=== PATIENT | female | born 1965 | race Asian ===

== ENCOUNTER 2020-04-07 12:24 | Outpatient (REF) | payer OTHER, SELFPAY | END 2020-04-07 12:25 | disposition home or self-care (01) | LOC: HO.WFDLDS 12:24 | PROVIDERS: Visit Provider Internal Medicine | DX: Z20.828 Contact with and (suspected) exposure to other viral communicable diseases (principal) | CPT/HCPCS: C9803; U0003 ==

== ENCOUNTER 2020-04-27 09:00 | Outpatient (RCR) | payer OTHER, SELFPAY ==
--- NOTE | 2020-03-31 08:24 | MHC.PT.EP ---
[facility] [place] Office [place] Office [place] Office [address] Chelsy Calderon [address] [phone] F: [phone] F: [phone] F: [phone] F: [phone] Physical Therapy Plan of Care Date of Evaluation: 03/30/20 Date of Surgery: Diagnosis: LBP Assessment: 55 YO FEMALE REF TO PT FOR LBP WITH INT RADICULAR SXS INTO LEFT 2-5 TOES. 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 MRI 01/21/2020 REVEALED L5-S1 BROAD BASED DISC BULGE, ASYMMETRIC TO THE LEFT AND MULTI LEVEL STENOSIS ( PLEASE REFER TO ABOVE FORMAL REPORT). OBJECTIVE FINDINGE REVEALED LIMITED TRUNK AND HIP AROM, (+) PELVIC/POSTURAL ASYMM, (+) WEAKNESS IN L > R LE, (+) SOFT TISSUE/FASCIAL RESTRICTION, AND FLUCTUATING L/S PAIN AND LEFT LE RADICULAR SXS. FUNCTIONALLY, Pt IS LIMITED WITH LIFTING ITEMS, BENDING, SQUATTING, PROLONGED STANDING, AND MOVING IN BED- SHE HABITUALLY FLEXES AT HER WAIST. Pt WOULD BENEFIT FROM PT TO ADDRESS PAIN AND SX MGMT, DEV HEP, AND IMPROVE HIP FLEX/ PELVIC SYMM-> PROGR W LARISSA PGM WARRANTED. Pt IS MOTIVATED TO REDUCE HER PAIN AND INCREASE HER ACTIVITY LEVEL. Frequency and Duration: The patient will be seen 2x WK x 5 WKS Short Term Goals: Pt'S LS PAIN DECR BY 50% AND LEFT LE RADIC SXS REDUCED BY 75% IN 2 WEEKS Pt DEMON INDEP SELF CORRECT OF POSTURE AND BODY MECH W SIMUL ADLs IN 2 WEEKS Shelter Goals: Pt RETURN TO PLOF, EVIDENT W IMPROVED OSWESTRY SCORE BY 10 POINTS (17/50 AT EVAL) IN 5 WEEKS Pt INDEP W HEP AND SELF-SX MGMT- DEMON WFL FUNCTIONAL SQUAT IN 5 WEEKS Treatment Plan: Modalities to reduce pain, spasms and effusion. Manual therapy to restore motion and function. Therapeutic exercise to improve strength and flexibility. Neuromuscular re-education for posture and balance. Therapeutic activities to return to functional activities of daily living. Please sign and return to therapist. Thank you for your referral.
--- NOTE | 2020-06-10 14:56 | MHC.PT.DC ---
[facility] [place] Office [place] Office [place] Office [address] Chelsy Calderon [address] [phone] F: [phone] F: [phone] F: [phone] F: [phone] Physical Therapy Discharge Report Diagnosis: LBP Date of Surgery: Date of Evaluation: 03/30/20 Date of Discharge: 06/10/20 Treatments to Date: 8 Cancellations to Date: 1 No Shows to Date: 0 Discharge Status: Improved Function Independent with HEP Patient Elected to Stop Discharge Summary: Pt HAS PROGRESSED WELL IN PT FORM HER LBP- HER LAST ATTENDED TREATMENT WAS 04/27/20- ATTEMPTS WERE MADE TO CONTACT HER . Pt HAD DECREASED SUBJECTIVE/ RADICULAR PAIN, IMPROVED AROM AND FLEXIBILITY, IMPROVED SELF-SX MGMT/ CENTRALIZATION OF SXS, INDEP W HEP, AND WE ADDRESSED AND SIMULATED ADLS TO REDUCE LB STRESS AND INCREASE LEs USAGE. Electronically signed by: Lauren Arreaga,PT Please sign and return to therapist. Thank you for your referral.
== END 2020-06-10 13:24 | disposition other institution (70) ==
LOC: HO.PT 09:00
PROVIDERS: Visit Provider Internal Medicine
DX: M54.5 Low back pain (principal)
CPT/HCPCS: 97012; 97110; 97140; 97161; 97530

== ENCOUNTER 2020-08-06 11:31 | Outpatient (REF) | payer OTHER, SELFPAY ==
[2020-08-06 13:41] LABS: Alanine Aminotransferase 23 U/L (0-31); Albumin Level 4.3 g/dL (3.5-5.0); Alkaline Phosphatase 120 U/L (39-117); Anion Gap 9 (12-20); Aspartate Amino Transferase 18 U/L (5-31); Bilirubin Total 0.6 mg/dL (0.0-1.0); Blood Urea Nitrogen 15 mg/dL (9-16); Carbon Dioxide 28 mmol/L (22-29); Chloride 106 mmol/L (96-108); Cholesterol 246 mg/dL; Estimated Glomerular Filt Rate > 60; Glucose Fasting 93 mg/dL (60-99); HDL Cholesterol 65 mg/dL; Iron 88 mcg/dL (30-160); LDL Cholesterol Calculated 170 mg/dl; Percent Iron Saturation 21 % (15-50); Potassium 4.4 mmol/L (3.3-5.1); Sodium 139 mmol/L (135-145); Total Iron Binding Capacity 423 mcg/dL (228-428); Total Protein 7.4 g/dL (6.5-8.0); Triglycerides 58 mg/dL; Unsaturated Iron Binding 335 ug/dL
== END 2020-08-06 11:32 | disposition home or self-care (01) ==
LOC: HO.LAB 11:31
PROVIDERS: PCP Physician Assistant; Visit Provider Physician Assistant
DX: E78.2 Mixed hyperlipidemia (principal); D50.9 Iron deficiency anemia, unspecified
CPT/HCPCS: 36415; 80053; 80061; 83540; 84443

== ENCOUNTER 2021-02-12 07:52 | Outpatient (REF) | payer OTHER, SELFPAY | END 2021-02-12 07:53 | disposition home or self-care (01) | LOC: HO.HOSX 07:52 | PROVIDERS: Visit Provider Physician Assistant | DX: Z13.89 Encounter for screening for other disorder (principal) ==

== ENCOUNTER 2021-07-24 10:53 | Outpatient (REF) | payer OTHER, SELFPAY ==
[2021-07-24 11:53] LABS: Hematocrit 34.5 % (37.0-47.0); Mean Corpuscular HGB Conc 31.9 g/dl (31.0-35.0); Mean Corpuscular Hemoglobin 28.8 pg (27.0-33.0); Mean Corpuscular Volume 90.3 fL (80.0-98.0); Mean Platelet Volume 9.6 fL (9.4-12.3); Platelet Count 351 X10*3/uL (160-400); Red Blood Count 3.82 X10*6/uL (4.20-5.50); Red Cell Distribution Width 13.3 % (11.0-16.0)
[2021-07-24 12:01] LABS: Alanine Aminotransferase 23 U/L (0-31); Albumin Level 4.2 g/dL (3.5-5.0); Alkaline Phosphatase 112 U/L (39-117); Anion Gap 12 (12-20); Aspartate Amino Transferase 18 U/L (5-31); Bilirubin Total 0.6 mg/dL (0.0-1.0); Blood Urea Nitrogen 14 mg/dL (9-16); Calcium 9.7 mg/dL (8.4-10.2); Carbon Dioxide 26 mmol/L (22-29); Chloride 106 mmol/L (96-108); Cholesterol 246 mg/dL; Estimated Glomerular Filt Rate > 60; Glucose Fasting 92 mg/dL (60-99); HDL Cholesterol 72 mg/dL; LDL Cholesterol Calculated 159 mg/dl; Potassium 4.7 mmol/L (3.3-5.1); Sodium 139 mmol/L (135-145); Total Protein 7.6 g/dL (6.5-8.0); Triglycerides 75 mg/dL
[2021-07-24 12:23] LABS: TSH reflex Free T4 2.22 uIU/mL (0.32-4.0)
== END 2021-07-24 10:54 | disposition home or self-care (01) ==
LOC: HO.LAB 10:53
PROVIDERS: PCP Physician Assistant; Visit Provider Physician Assistant
DX: E78.2 Mixed hyperlipidemia (principal); I10 Essential (primary) hypertension
CPT/HCPCS: 36415; 80053; 80061; 84443; 85027

== ENCOUNTER → 2021-08-23 09:38 | Outpatient (BNVA) | payer OTHER, SELFPAY | PROVIDERS: PCP Physician Assistant; Visit Provider Anesthesiology | DX: M54.50 Low back pain, unspecified (principal); G89.4 Chronic pain syndrome; M47.816 Spondylosis without myelopathy or radiculopathy, lumbar region; M51.36 Other intervertebral disc degeneration, lumbar region | CPT/HCPCS: 99202 ==

== ENCOUNTER 2022-02-01 09:37 | Outpatient (REF) | payer OTHER, SELFPAY ==
--- NOTE | ~2022-02-01 | MR_ITS ---
EXAMINATION: MR LUMBAR SPINE WITHOUT CONTRAST CLINICAL INFORMATION: Pain radiating to left hip. COMPARISON: MRI dated 01/21/2020. TECHNIQUE: Multiplanar, multisequence imaging was obtained. FINDINGS: VERTEBRAL BODIES AND PARASPINAL STRUCTURES: There are progressed chronic discogenic endplate changes with degenerative Schmorl's nodes at the L5-S1 level and further moderate disc space narrowing with a slight retrosubluxation. Minimal endplate edema also evident at this level. The remainder of the marrow signal is homogeneous. No compression fractures. There is a minimal posterior subluxation which is stable at the L3-L4 level. The paraspinal soft tissues are unremarkable. Imaged bony pelvis is normal. CONUS MEDULLARIS AND CAUDA EQUINE: The distal cord, conus tip, and cauda equina nerve roots are normal. SPINAL LEVELS: L1-L2: Very mild disc bulge and mild endplate spurring developed since the prior study. No focal disc protrusion, central canal stenosis, or foraminal narrowing. L2-L3: No disc pathology. No central canal stenosis or foraminal narrowing. L3-L4: Minimal endplate spurring and mild retrosubluxation and mild facet arthropathy and a slight posterior disc bulge. No central canal stenosis or foraminal encroachment, otherwise stable. L4-L5: No significant disc pathology. [id number] facet arthropathy. No central canal stenosis or foraminal narrowing. L5-S1: Moderate loss of disc height with chronic degenerative endplate changes and a retrosubluxation. Shallow, broad-based posterior disc bulge again evident with moderate to severe facet arthropathy. No central canal stenosis. Mild left foraminal narrowing. Incidental partially conjoined right L5-S1 nerve roots. Small right extraforaminal disc protrusion mildly impresses upon the exiting right L5 nerve root. MR/MR lumbar spine wo con IMPRESSION: Progressed moderate degenerative disc disease at the L5-S1 level. No central canal stenosis. Partially conjoined right L5-S1 nerve roots with a new small right extraforaminal disc protrusion mildly impressing upon the right L5 nerve root. Stable very mild spondylitic changes at the L3-L4 level. Very mild disc bulge and endplate spurring at the L1-L2 level.
== END 2022-02-01 09:38 | disposition home or self-care (01) ==
LOC: HO.MRI 09:37
PROVIDERS: Visit Provider Physician Assistant
DX: M47.816 Spondylosis without myelopathy or radiculopathy, lumbar region (principal)
CPT/HCPCS: 72148

== ENCOUNTER 2022-02-08 15:55 | Outpatient (REF) | payer OTHER, SELFPAY ==
--- NOTE | ~2022-02-08 | XR_ITS ---
EXAMINATION: BILATERAL KNEE X-RAY CLINICAL INFORMATION: Pain COMPARISON: None TECHNIQUE: 3 views of each knee FINDINGS: Left: Bone alignment is normal. No fracture or dislocation is seen. There is arthritis at the patellofemoral joint. The femoral tibial joints are normal. There is no joint effusion. Right: Bone alignment is normal. No fracture or dislocation is seen. There is arthritis at the patellofemoral joint. The femoral tibial joints are normal. There is no joint effusion. XR/XR knee LT 2V IMPRESSION: Arthritis at the bilateral patellofemoral joints.
--- NOTE | ~2022-02-08 | XR_ITS ---
EXAMINATION: BILATERAL KNEE X-RAY CLINICAL INFORMATION: Pain COMPARISON: None TECHNIQUE: 3 views of each knee FINDINGS: Left: Bone alignment is normal. No fracture or dislocation is seen. There is arthritis at the patellofemoral joint. The femoral tibial joints are normal. There is no joint effusion. Right: Bone alignment is normal. No fracture or dislocation is seen. There is arthritis at the patellofemoral joint. The femoral tibial joints are normal. There is no joint effusion. XR/XR knee RT 2V IMPRESSION: Arthritis at the bilateral patellofemoral joints.
--- NOTE | ~2022-02-08 | XR_ITS ---
EXAMINATION: BILATERAL KNEE X-RAY CLINICAL INFORMATION: Pain COMPARISON: None TECHNIQUE: 3 views of each knee FINDINGS: Left: Bone alignment is normal. No fracture or dislocation is seen. There is arthritis at the patellofemoral joint. The femoral tibial joints are normal. There is no joint effusion. Right: Bone alignment is normal. No fracture or dislocation is seen. There is arthritis at the patellofemoral joint. The femoral tibial joints are normal. There is no joint effusion. XR/XR knee standing BI IMPRESSION: Arthritis at the bilateral patellofemoral joints.
--- NOTE | ~2022-02-08 | XR_ITS ---
EXAMINATION: XR FOOT, LEFT CLINICAL INFORMATION: Pain COMPARISON: None TECHNIQUE: AP, lateral, and oblique views of the left foot. FINDINGS: There is a minimally displaced fracture of the proximal phalanx of the fifth toe. No other fracture is seen. Bone alignment is otherwise normal. Joint spaces are normal. There is soft tissue swelling adjacent to the fracture. XR/XR foot LT 2V IMPRESSION: Minimally displaced fracture of the proximal phalanx of the fifth toe. Findings will be communicated by the [place] work flow director [employer].
== END 2022-02-08 15:56 | disposition home or self-care (01) ==
LOC: HO.XRAY 15:55
PROVIDERS: PCP Physician Assistant; Visit Provider Physician Assistant
DX: M25.561 Pain in right knee (principal); M25.562 Pain in left knee; M79.672 Pain in left foot
CPT/HCPCS: 73560; 73565; 73620

== ENCOUNTER 2022-03-14 15:19 | Outpatient (REF) | payer OTHER, SELFPAY ==
--- NOTE | ~2022-03-14 | XR_ITS ---
EXAMINATION: XR CERVICAL SPINE CLINICAL INFORMATION: Cervicalgia COMPARISON: None TECHNIQUE: 3 views of the cervical spine were obtained. FINDINGS: There is straightening of cervical lordosis with narrowing cough C5-C6 and C6-C7 intervertebral disc spaces with marginal spurring. Soft tissues unremarkable. There is no spondylolysis or listhesis. XR/XR cervical spine 3V IMPRESSION: Mild degenerative changes at the level of C5-C6 and C6-C7
--- NOTE | ~2022-03-14 | XR_ITS ---
EXAMINATION: XR LUMBOSACRAL SPINE CLINICAL INFORMATION: Pain in lumbosacral region COMPARISON: 08/14/2019 TECHNIQUE: Three views of the lumbosacral spine. FINDINGS: There are 5 not ribs bearing lumbar vertebral bodies. Spinal alignment is anatomical with straightening of lumbar lordosis. There is no narrowing of the intervertebral disc spaces or spondylolysis or listhesis except of mild narrowing of L5-S1. Sacroiliac joints are unremarkable. There is mild curvature of lumbar spine to the left. XR/XR lumbar spine 2-3V IMPRESSION: Straightening of lumbar lordosis and mild curvature of lumbar spine to the left, stable since previous
== END 2022-03-14 15:20 | disposition home or self-care (01) ==
LOC: HO.XRAY 15:19
PROVIDERS: PCP Physician Assistant; Visit Provider Physician Assistant
DX: M51.37 Other intervertebral disc degeneration, lumbosacral region (principal); G95.9 Disease of spinal cord, unspecified; V89.2XXA Person injured in unspecified motor-vehicle accident, traffic, initial encounter
CPT/HCPCS: 72040; 72100

== ENCOUNTER 2022-09-09 13:10 | Outpatient (REF) | payer OTHER, SELFPAY ==
[2022-09-09 13:57] LABS: Hemoglobin 10.9 g/dl (12.0-16.0); Mean Corpuscular Hemoglobin 29.6 pg (27.0-33.0); Mean Corpuscular Volume 89.7 fL (80.0-98.0); Platelet Count 319 X10*3/uL (160-400); Red Blood Count 3.68 X10*6/uL (4.20-5.50); Red Cell Distribution Width 13.8 % (11.0-16.0); White Blood Count 6.7 X10*3/uL (4.8-10.8)
[2022-09-09 14:37] LABS: Alanine Aminotransferase 12 U/L (0-31); Albumin Level 4.1 g/dL (3.5-5.0); Alkaline Phosphatase 108 U/L (39-117); Anion Gap 11 (12-20); Aspartate Amino Transferase 11 U/L (5-31); Bilirubin Total 0.3 mg/dL (0.0-1.0); Blood Urea Nitrogen 14 mg/dL (9-16); Calcium 9.3 mg/dL (8.4-10.2); Carbon Dioxide 26 mmol/L (22-29); Chloride 109 mmol/L (96-108); Cholesterol 249 mg/dL; Estimated Glomerular Filt Rate > 60; Glucose Fasting 98 mg/dL (60-99); HDL Cholesterol 52 mg/dL; LDL Cholesterol Calculated 184 mg/dl; Potassium 4.9 mmol/L (3.3-5.1); Sodium 141 mmol/L (135-145); Triglycerides 68 mg/dL
[2022-09-09 14:51] LABS: TSH reflex Free T4 2.68 uIU/mL (0.32-4.0)
== END 2022-09-09 13:11 | disposition home or self-care (01) ==
LOC: HO.LAB 13:10
PROVIDERS: PCP Physician Assistant; Visit Provider Physician Assistant
DX: E78.2 Mixed hyperlipidemia (principal)
CPT/HCPCS: 36415; 80053; 80061; 84443; 85027

== ENCOUNTER 2022-10-13 10:57 | Outpatient (REF) | payer OTHER, SELFPAY ==
--- NOTE | ~2022-10-13 | XR_ITS ---
EXAMINATION: Right tibia and fibula and right ankle. CLINICAL INDICATION: Fall. TECHNIQUE: right ankle 3 views and right tibia and fibula 2 views. FINDINGS: RIGHT TIBIA AND FIBULA: There is no visible bony abnormality tibia-fibula. No cortical thickening or periosteal elevation. The soft tissues are normal. The adjacent knee joint and ankle joint is unremarkable. RIGHT ANKLE: There is moderate lateral malleolar soft tissue swelling. No visible fracture or dislocation seen. Ankle mortise and subtalar joints are normal. A small retrocalcaneal enthesophyte is noted. XR/XR tibia fibula RT 2V IMPRESSION: Small retrocalcaneal enthesophyte. Moderate lateral malleolar soft tissue swelling suggestive of ligamentous injury. No fracture seen. Unremarkable right tibia and fibula.
--- NOTE | ~2022-10-13 | XR_ITS ---
EXAMINATION: Right tibia and fibula and right ankle. CLINICAL INDICATION: Fall. TECHNIQUE: right ankle 3 views and right tibia and fibula 2 views. FINDINGS: RIGHT TIBIA AND FIBULA: There is no visible bony abnormality tibia-fibula. No cortical thickening or periosteal elevation. The soft tissues are normal. The adjacent knee joint and ankle joint is unremarkable. RIGHT ANKLE: There is moderate lateral malleolar soft tissue swelling. No visible fracture or dislocation seen. Ankle mortise and subtalar joints are normal. A small retrocalcaneal enthesophyte is noted. XR/XR ankle RT 2V IMPRESSION: Small retrocalcaneal enthesophyte. Moderate lateral malleolar soft tissue swelling suggestive of ligamentous injury. No fracture seen. Unremarkable right tibia and fibula.
== END 2022-10-13 10:58 | disposition home or self-care (01) ==
LOC: HO.HMGCX 10:57
PROVIDERS: PCP Physician Assistant; Visit Provider Internal Medicine
DX: S99.911A Unspecified injury of right ankle, initial encounter (principal); W19.XXXA Unspecified fall, initial encounter
CPT/HCPCS: 73590; 73600

== ENCOUNTER 2023-03-09 10:15 | Outpatient (REF) | payer OTHER, SELFPAY ==
[2023-03-09 11:44] LABS: Hemoglobin 11.8 g/dl (12.0-16.0); Mean Corpuscular HGB Conc 32.8 g/dl (31.0-35.0); Mean Corpuscular Hemoglobin 29.2 pg (27.0-33.0); Mean Corpuscular Volume 89.1 fL (80.0-98.0); Mean Platelet Volume 9.9 fL (9.4-12.3); Platelet Count 370 X10*3/uL (160-400); Red Blood Count 4.04 X10*6/uL (4.20-5.50); Red Cell Distribution Width 13.8 % (11.0-16.0); White Blood Count 6.3 X10*3/uL (4.8-10.8)
[2023-03-09 13:49] LABS: Alanine Aminotransferase 17 U/L (0-31); Albumin Level 4.4 g/dL (3.5-5.0); Alkaline Phosphatase 111 U/L (39-117); Anion Gap 13 (12-20); Aspartate Amino Transferase 16 U/L (5-31); Bilirubin Total 0.4 mg/dL (0.0-1.0); Blood Urea Nitrogen 11 mg/dL (9-16); Calcium 10.1 mg/dL (8.4-10.2); Carbon Dioxide 25 mmol/L (22-29); Chloride 107 mmol/L (96-108); Cholesterol 252 mg/dL (<200); Estimated Glomerular Filt Rate > 60; Glucose Fasting 93 mg/dL (60-99); HDL Cholesterol 63 mg/dL (>40); LDL Cholesterol Calculated 175 mg/dL (<100); Potassium 4.6 mmol/L (3.3-5.1); Sodium 140 mmol/L (135-145); Triglycerides 71 mg/dL (<150)
== END 2023-03-09 10:16 | disposition home or self-care (01) ==
LOC: HO.LAB 10:15
PROVIDERS: PCP Physician Assistant; Visit Provider Physician Assistant
DX: E78.2 Mixed hyperlipidemia (principal)
CPT/HCPCS: 36415; 80053; 80061; 85027

== ENCOUNTER 2023-03-13 08:39 | Outpatient (AMB) | payer OTHER, SELFPAY ==
[2023-03-13 08:41] VITALS: BP 118/70; PULSE 72; O2SAT 99; BMI 25.6
--- NOTE | 2023-03-13 08:41 | MHC.PC.OV ---
Vital Signs 03/13/23 08:41 Height 5 ft 5 in Weight 154 lb BMI 25.6 BP 118/70 Blood Pressure Location Lt brachial Position Sitting Pulse 72 Pulse Source Pulse Oximeter Pulse Oximetry (%) 99 Oxygen Delivery Method Room Air Intake Visit Reasons: f/u HLD/ Lumbar spine disc issue-PHQ9 NEEDED Allergies acetaminophen [Tylenol-Codeine] Adverse Reaction (Unknown, Verified 03/13/23 08:52) dizziness codeine [Tylenol-Codeine] Adverse Reaction (Unknown, Verified 03/13/23 08:52) dizziness Medication List - Last Reconciled 03/13/23 by Edvin Shahid PA-C acetaminophen ER (Pain Relief (acetaminophen)) 650 mg PO Q12H 30 days amoxicillin-pot clavulanate 875-125 mg 1 tab PO BID 7 days cetirizine 10 mg PO DAILY 90 days cyclobenzaprine 5 mg PO TID PRN 10 days fluticasone propionate 50 mcg/actuation (Flonase Allergy Relief) 1 spray intranasal Q12H 30 days ibuprofen 800 mg PO Q8H 30 days olopatadine 0.2% (Pataday Once Daily Relief) 1 drp ophthalmic (eye) DAILY 30 days zolpidem (Ambien) 5 mg PO BEDTIME 30 days Tobacco use date assessed: 09/12/22 Dental Screening Dental Screen Date: 03/13/23 Did you have a dental visit in the last 12 months?: Yes Did you have a dental problem in the last 6 months where you did not have access to dental care?: No Was dental information given to patient?: Patient has dentist HPI f/u HLD/ Lumbar spine disc issue-PHQ9 NEEDED HPI Details Patient is a 58-year-old female here today for follow-up visit..? 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 --concerns> lumbar spine pain and high cholesterol. Lumbar disc disease:? Continues to have intermittent lumbar spine pain..? She reports worsening left lower extremity neuropathic symptoms such a numbness and tingling her left foot.? She has had MRI lumbar spine in 2021 showing Progressed moderate degenerative disc disease at the L5-S1 level. No central canal stenosis. Partially conjoined right L5-S1 nerve roots with a new small right extraforaminal disc protrusion mildly impressing upon the right L5 nerve root. ? Patient interested in pain reduction intervention and interested in seeing new back specialist. She is interested in seeing a sign painter apprentice for a pain intervention. .. Hyperlipidemia:? Continues to elevated cholesterol, most recent cholesterol showing 250s and LDL 175.? Likely a familiar hyper cholesterolemia.? Not interested in starting cholesterol-lowering medication at this time. She has no cardiovascular risks. ?She has been working on being more physically active and reducing high cholesterol foods in her diet. .. Insomnia: She does use open 5 mg on a very limited p.r.n. basis for sleep. Laboratory Tests 09/09/22 09/09/22 03/09/23 13:19 13:19 10:45 RBC 4.04 L Hgb Creatinine 0.75 Cholesterol 249 252 H LDL Cholesterol, C alc 184 03/09/23 03/09/23 10:45 10:45 RBC Hgb 11.8 L Creatinine Cholesterol LDL Cholesterol, C alc 175 H [facility] Medical History Chronic pain syndrome Disc degeneration, lumbar Spondylosis of lumbar region without myelopathy or radiculopathy Low back pain Surgical History History of section History of wisdom tooth extraction History of cholecystectomy Family History Father Diabetes Mother No problems noted. 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 1. Little interest or pleasure in doing things: not at all 2. Feeling down, depressed, or hopeless: not at all 3. Trouble falling or staying asleep, or sleeping too much: not at all 4. Feeling tired or having little energy: not at all 5. Poor appetite or overeating: not at all 6. Feeling bad about yourself - or that you are a failure or have let yourself or your family down: not at all 7. Trouble concentrating on things, such as reading the newspaper or watching television: not at all 8. Moving or speaking so slowly that other people could have noticed. Or the opposite - being so fidgety or restless that you have been moving around a lot more than usual: not at all 9. Thoughts that you would be better off or of hurting yourself in some way: not at all Total score: 0 Depression Screening Interpretation: Negative Depression Screening Done: Yes 80204 - PHQ-9 Billing: Yes Source: Developed by Drs. Yaniv Pacheco, Stephanie Zabala, Dustin Combs and colleagues, with an educational austin from [employer]. Thrive Questionnaire Date Thrive assessed: 05/25/22 AUDIT C Alcohol Use Questionnaire (AUDIT-C) 1. How often do you have a drink containing alcohol?: Never 3. How often do you have six or more drinks on one occasion?: Never Total Score: 0 NEGIN-7 AMB Questionnaire NEGIN-7 Date NEGIN - 7 assessed: 05/25/22 Source: Developed by Drs. Yaniv Pacheco, Stephanie Zabala, Dustin Combs and colleagues, with an educational austin from [employer]. Review of Systems Const Denies headache(s) Eyes Denies loss of vision ENT Denies vertigo, Denies dizziness, Denies headache(s) and Denies sore throat Card Denies chest pain, Denies leg edema and Denies lightheadedness Resp Denies cough, Denies hemoptysis and Denies wheezing GI Denies abdominal pain, Denies melena, Denies constipation, Denies diarrhea and Denies vomiting Denies urinary frequency, Denies dysuria and Denies urinary urgency Musc Denies arthralgias, Denies joint swelling, Denies numbness and Denies tingling Neuro Denies Abnormal speech present, Denies behavioral changes, Denies vertigo, Denies dizziness, Denies headache(s), Denies loss of vision, Denies memory loss, Denies numbness and Denies tingling Psych Denies anxiety, Denies behavioral changes, Denies depression, Denies memory loss and Denies panic attacks Reginald/Lymph Denies easy bleeding and Denies easy bruising Aller/Immun Denies wheezing Physical exam (Primary Care) Vital Signs: Last Vital Signs Pulse 72 03/13/23 08:41 BP 118/70 03/13/23 08:41 Pulse Ox 99 03/13/23 08:41 Oxygen Delivery Method Room Air 03/13/23 08:41 BMI result Body Mass Index 25.6 Tobacco/Smoking Status: Tobacco use Status Tobacco use date assessed 09/12/22 03/13/23 08:45 Patient Tobacco Use Status Never used Tobacco 03/13/23 08:45 e-Cigarette/Vaping Use Never Used 03/13/23 08:45 Depression Screening Interpretation: Negative Thrive Assessment: Date of Thrive Assessment Date Thrive assessed 05/25/22 03/13/23 08:45 Const General: healthy appearing, no acute distress, alert and awake Nutritional Appearance: well nourished Orientation/consciousness: oriented to person, oriented to place and oriented to time HENMT Ears: TM's normal bilaterally General nose exam: Normal nasal mucous membranes and turbinates present Eyes Conjunctivae: conjunctivae normal Sclerae: sclerae normal Pupils: Equal, round and reactive pupils present Neck Neck: Yes no lymphadenopathy and Yes no JVD Thyroid: Thyroid normal Carotids: no bruits Resp Effort & Inspection: normal respiratory effort and not tachypneic Auscultation: no crackles, no rales, no rhonchi and no wheezes Cardio Rate: regular rate Rhythm: regular rhythm Heart sounds: no murmurs and normal S1 and S2 GI Palpation (GI): Soft to palpation, nontender, no hepatomegaly and no splenomegaly Auscultation: normal bowel sounds Skin General skin exam: no rashes or lesions noted and dry skin Neuro General: oriented to person, oriented to place and oriented to time Cranial nerves: Yes Equal, round and reactive pupils present Speech: No Abnormal speech present Gait exam (Neuro): Normal gait present Motor exam (neuro): no tremor noted Extrem Right upper extremity: full ROM Left upper extremity: full ROM Right lower extremity: full ROM; no edema Left lower extremity: full ROM; no edema Psych Mental Status: mental status grossly normal Speech and movement: Normal speech and movement present Affect: normal affect Attitude: cooperative Thought process: Normal thought process present Assessment and Plan Assessment & Plan (1) HLD (hyperlipidemia): Code(s): E78.5 - Hyperlipidemia, unspecified Qualifiers: Hyperlipidemia type: mixed hyperlipidemia Qualified Code(s): E78.2 - Mixed hyperlipidemia Plan: Patient's cholesterol still remains elevated. Has been working on lifestyle modifications though has not been effective. We did discuss starting medication though patient is not interested in starting medication for cholesterol this time. Will continue to work extensively on lifestyle modifications on reducing high cholesterol foods in her diet. (2) Degenerative disc disease at L5-S1 level: Code(s): M51.37 - Other intervertebral disc degeneration, lumbosacral region Plan: Patient does have chronic lower back pain, most recent MRI lumbar spine showing disc bulge at level L5-S1. Has done physical therapy though has not helped much for pain. She continues to use Tylenol and cyclobenzaprine with decent relief. She is not interested in any surgeries onher lumbar spine at this time. She will reach back out to Pain Management to perhaps discuss cortisone injection (3) Insomnia: Code(s): G47.00 - Insomnia, unspecified Qualifiers: Insomnia type: unspecified Qualified Code(s): G47.00 - Insomnia, unspecified Plan: Patient uses zolpidem on a p.r.n. basis for her sleeping issue. Orders: Orders Complete Blood Count no Diff Today E78.2 - Mixed hyperlipidemia Lipid Panel Today E78.2 - Mixed hyperlipidemia Comprehensive Sanders. Panel Fast Today E78.2 - Mixed hyperlipidemia Medications: Refilled fluticasone propionate 50 mcg/actuation (Flonase Allergy Relief) administer into each nostril 1 spray intranasal Q12H 30 days 16 grams 1RF J30.1 - Allergic rhinitis due to pollen acetaminophen ER (Pain Relief (acetaminophen)) 650 mg PO Q12H 30 days 60 tabs 3RF M17.10 - Unilateral primary osteoarthritis, unspecified knee ibuprofen 800 mg PO Q8H 30 days 90 tabs 1RF G95.9 - Disease of spinal cord, unspecified zolpidem (Ambien) 5 mg PO BEDTIME 30 days 30 tabs 3RF sleep G47.00 - Insomnia, unspecified Discontinued amoxicillin-pot clavulanate 875-125 mg Discontinued Reason: Doctor's Order 1 tab PO BID 7 days 14 tabs 0RF L03.119 - Cellulitis of unspecified part of limb Coding Level of Care Code Est Pt Level 4 (29518) Diagnoses Mixed hyperlipidemia E78.2 Hyperlipidemia type: mixed hyperlipidemia Degenerative disc disease at L5-S1 level M51.37 Insomnia, unspecified type G47.00 Insomnia type: unspecified
== END 2023-03-13 09:17 | disposition home or self-care (01) ==
PROVIDERS: Visit Provider Physician Assistant
DX: E78.2 Mixed hyperlipidemia (principal); M51.37 Other intervertebral disc degeneration, lumbosacral region; G47.00 Insomnia, unspecified
CPT/HCPCS: 99214

== ENCOUNTER 2023-08-16 09:51 | Outpatient (AMB) | payer OTHER, SELFPAY ==
[2023-08-16 09:54] VITALS: BP 100/66; PULSE 65; O2SAT 99; BMI 25.3
--- NOTE | 2023-08-16 09:54 | A.OFFPC_ITS ---
Vital Signs 08/16/23 09:54 Height 5 ft 5 in Weight 152 lb BMI 25.3 BP 100/66 Blood Pressure Location Lt brachial Position Sitting Pulse 65 Pulse Source Pulse Oximeter Pulse Oximetry (%) 99 Oxygen Delivery Method Room Air Intake Visit Reasons: body ache Intake Note: Pt is here for body aches and lower back pain for the past two weeks. 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 Accompanied by: Self / Same As Patient Allergies acetaminophen [Tylenol-Codeine] Adverse Reaction (Unknown, Verified 08/16/23 1 0:11) dizziness codeine [Tylenol-Codeine] Adverse Reaction (Unknown, Verified 08/16/23 10:11) dizziness Medication List - Last Reconciled 08/16/23 by Edvin Shahid PA-C acetaminophen ER (Pain Relief (acetaminophen)) 650 mg PO Q12H 30 days cetirizine 10 mg PO DAILY 90 days cyclobenzaprine 5 mg PO TID PRN 10 days fluticasone propionate 50 mcg/actuation (Flonase Allergy Relief) 1 spray intranasal Q12H 30 days ibuprofen 800 mg PO Q8H 30 days olopatadine 0.2% (Pataday Once Daily Relief) 1 drp ophthalmic (eye) DAILY 30 days zolpidem (Ambien) 5 mg PO BEDTIME 30 days Tobacco use date assessed: 08/16/23 Dental Screening Dental Screen Date: 08/16/23 Did you have a dental visit in the last 12 months?: Yes Did you have a dental problem in the last 6 months where you did not have access to dental care?: No Was dental information given to patient?: Patient has dentist HPI body ache HPI Details Patient is a 58-year-old female here today for problem visit she has been experiencing lower back pain body aches over the last 2 weeks. She reports her muscle aches have gone away which may have been viral. She reports her lower lumbar spine pain has gotten a bit worse. Does report radicular symptoms with numbness and tingling in left foot. Of note MRI in 2021 does show moderate lumbar disc disease and disc herniation at L5-S1. She has done physical therapy for her chronic lumbar spine pain though has not been effective. She is now interested in seeing a powder coat painter about pain reduction modality. [facility] Medical History Chronic pain syndrome Disc degeneration, lumbar Spondylosis of lumbar region without myelopathy or radiculopathy Low back pain Surgical History History of section History of wisdom tooth extraction History of cholecystectomy Family History Father Diabetes Mother No problems noted. 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 1. Little interest or pleasure in doing things: not at all 2. Feeling down, depressed, or hopeless: not at all 3. Trouble falling or staying asleep, or sleeping too much: not at all 4. Feeling tired or having little energy: not at all 5. Poor appetite or overeating: not at all 6. Feeling bad about yourself - or that you are a failure or have let yourself or your family down: not at all 7. Trouble concentrating on things, such as reading the newspaper or watching television: not at all 8. Moving or speaking so slowly that other people could have noticed. Or the opposite - being so fidgety or restless that you have been moving around a lot more than usual: not at all 9. Thoughts that you would be better off or of hurting yourself in some way: not at all Total score: 0 Depression Screening Interpretation: Negative Depression Screening Done: Yes 28712 - PHQ-9 Billing: Yes Source: Developed by Drs. Yaniv Pacheco, Stephanie Zabala, Dustin Combs and colleagues, with an educational austin from [employer]. Thrive Questionnaire Date Thrive assessed: 08/16/23 I am a: Patient What is your living situation today?: I have a steady place to live Within the past 12 months, did the food you bought not last and you didn't have the money to get more?: Never true Within the past 12 months, did you worry whether your food would run out before you got money to buy more?: Never true Do you have trouble paying for medicines?: No Do you have trouble getting transportation to medical appointments?: No Do you have trouble paying your heating and electricity bill?: No Do you have trouble taking care of your child, family member or friend?: No Do you have trouble with day-to-day activities such as bathing, preparing meals, shopping, managing finances, etc.?: No Are you currently unemployed and looking for a job?: No Are you interested in more education?: No Please select the resources that you would like help with: None Currently or been in a relationship where the following occur: no concerns reported THRIVE Score: 0 AUDIT C Alcohol Use Questionnaire (AUDIT-C) 1. How often do you have a drink containing alcohol?: Never 3. How often do you have six or more drinks on one occasion?: Never Total Score: 0 NEGIN-7 AMB Questionnaire NEGIN-7 Date NEGIN - 7 assessed: 08/16/23 Feeling nervous, anxious, or on edge: 0 = Not at all Not being able to stop or control worryin = Not at all Worrying too much about different things: 0 = Not at all Trouble relaxin = Not at all Being so restless that it is hard to sit still: 0 = Not at all Becoming easily annoyed or irritable: 0 = Not at all Feeling afraid as if something awful might happen: 0 = Not at all Total NEGIN-7 score (0-4 normal; 5-9 mild; 10-14 moderate; 15-21 severe): 0 Source: Developed by Drs. Yaniv Pacheco, Stephanie Zabala, Dustin Combs and colleagues, with an educational austin from [employer]. NEGIN-7 Assessment Billing NEGIN-7 Assessment Tool: NEGIN-7 Assessment 74010 Review of Systems Const Denies headache(s) Eyes Denies loss of vision ENT Denies vertigo, Denies dizziness, Denies headache(s) and Denies sore throat Card Denies chest pain, Denies leg edema and Denies lightheadedness Resp Denies cough, Denies hemoptysis and Denies wheezing GI Denies abdominal pain, Denies melena, Denies constipation, Denies diarrhea and Denies vomiting Denies urinary frequency, Denies dysuria and Denies urinary urgency Musc Reports back pain, Denies numbness and Denies tingling Neuro Denies Abnormal speech present, Denies behavioral changes, Denies vertigo, Denies dizziness, Denies headache(s), Denies loss of vision, Denies memory loss, Denies numbness and Denies tingling Psych Denies anxiety, Denies behavioral changes, Denies depression, Denies memory loss and Denies panic attacks Reginald/Lymph Denies easy bleeding and Denies easy bruising Aller/Immun Denies wheezing Physical exam (Primary Care) Vital Signs: Last Vital Signs Pulse 65 08/16/23 09:54 BP 100/66 08/16/23 09:54 Pulse Ox 99 08/16/23 09:54 Oxygen Delivery Method Room Air 08/16/23 09:54 BMI result Body Mass Index 25.3 Tobacco/Smoking Status: Tobacco use Status Tobacco use date assessed 08/16/23 08/16/23 10:06 Patient Tobacco Use Status Never used Tobacco 08/16/23 09:55 e-Cigarette/Vaping Use Never Used 08/16/23 09:55 PHQ-9: PHQ-9 Score PHQ-9: Total score 0 08/16/23 10:13 Depression Screening Interpretation: Negative Thrive Assessment: Date of Thrive Assessment Date Thrive assessed 08/16/23 08/16/23 10:06 Currently or been in a relationship where the following occur: no concerns reported Const General: healthy appearing, no acute distress, alert and awake Nutritional Appearance: well nourished Orientation/consciousness: oriented to person, oriented to place and oriented to time [facility] Ears: TM's normal bilaterally General nose exam: Normal nasal mucous membranes and turbinates present Eyes Conjunctivae: conjunctivae normal Sclerae: sclerae normal Pupils: Equal, round and reactive pupils present Neck Neck: Yes no lymphadenopathy and Yes no JVD Thyroid: Thyroid normal Carotids: no bruits Resp Effort & Inspection: normal respiratory effort and not tachypneic Auscultation: no crackles, no rales, no rhonchi and no wheezes Cardio Rate: regular rate Rhythm: regular rhythm Heart sounds: no murmurs and normal S1 and S2 GI Palpation (GI): Soft to palpation, nontender, no hepatomegaly and no splenomegaly Auscultation: normal bowel sounds Skin General skin exam: no rashes or lesions noted and dry skin Neuro General: oriented to person, oriented to place and oriented to time Cranial nerves: Yes Equal, round and reactive pupils present Speech: No Abnormal speech present Gait exam (Neuro): Normal gait present Motor exam (neuro): no tremor noted Extrem Right upper extremity: full ROM Left upper extremity: full ROM Right lower extremity: full ROM; no edema Left lower extremity: full ROM; no edema Psych Mental Status: mental status grossly normal Speech and movement: Normal speech and movement present Affect: normal affect Attitude: cooperative Thought process: Normal thought process present Assessment and Plan Assessment & Plan (1) Degenerative disc disease at L5-S1 level: Code(s): M51.37 - Other intervertebral disc degeneration, lumbosacral region Plan: Patient reports a few week history of worsening lower lumbar spine pain. Denies any saddle amnesia or bowel or bladder dysfunction. She does report radicular symptoms of numbness and tingling down left lower extremity. Of note MRI of lumbar spine in 2021 showing L5-S1 disc herniation and moderate lumbar disc disease. She is interested in 1 seeing pain management for pain reduction modality. Due to patient's worsening symptoms will try for new MRI of lumbar spine to evaluate for worsening disc herniation. Will start gabapentin 100 mg b.i.d.. Will continue her NSAID and Tylenol Orders: Orders MR lumbar spine wo con Today M51.37 - Other intervertebral disc degeneration, lumbosacral region Referrals Pain Management Referral M51.37 - Other intervertebral disc degeneration, lumbosacral region Medications: New gabapentin 100 mg PO BID 30 days 60 caps 1RF M51.37 - Other intervertebral disc degeneration, lumbosacral region Refilled acetaminophen ER (Pain Relief (acetaminophen)) 650 mg PO Q12H 30 days 60 tabs 3RF M17.10 - Unilateral primary osteoarthritis, unspecified knee Discontinued cyclobenzaprine Discontinued Reason: Doctor's Order 5 mg PO TID 10 days PRN 30 tabs 3RF muscle spasm M51.26 - Other intervertebral disc displacement, lumbar region Coding Level of Care Code Est Pt Level 4 (56093) Diagnoses Degenerative disc disease at L5-S1 level M51.37 Additional Codes NEGIN-7 Assessment Billing - NEGIN-7 Assessment Tool: NEGIN-7 Assessment 95561 ([id number])
== END 2023-08-16 10:28 | disposition home or self-care (01) ==
PROVIDERS: PCP Physician Assistant; Visit Provider Physician Assistant
DX: M51.37 Other intervertebral disc degeneration, lumbosacral region (principal)
CPT/HCPCS: 99214

== ENCOUNTER 2023-09-05 18:38 | Outpatient (REF) | payer OTHER, SELFPAY ==
--- NOTE | ~2023-09-05 | MR_ITS ---
MR LUMBAR SPINE WITHOUT IV CONTRAST CLINICAL INFORMATION: Intervertebral disc degeneration/lumbosacral region. COMPARISON: Lumbar spine radiographs 03/14/2022 and lumbar spine MRI 02/01/2022. TECHNIQUE: MRI of the lumbar spine was obtained using routine sequences without contrast. FINDINGS: There are 5 nonrib-bearing lumbar-type vertebral bodies. There is slight retrolisthesis of L2 on L3 and L3 on L4, unchanged. Lumbar alignment is otherwise preserved. The vertebral body heights are maintained. Chronic opposing endplate Schmorl's nodes at L5-S1 again noted. Mild disc volume loss and disc desiccation at L1-L2 and L3-L4. Progressive moderate disc volume loss and disc desiccation at L5-S1. There is no bone marrow edema. There are no acute fractures. Conus terminates at the L1 level. L1-L2: Slight annular disc bulge. No central canal stenosis and no foraminal stenosis. Findings unchanged. L2-L3: Slight retrolisthesis. Small annular disc bulge. No central canal stenosis and no foraminal stenosis. Findings unchanged. L3-L4: Slight retrolisthesis. Diffuse annular disc bulge and moderate bilateral facet arthropathy and ligamentum flavum thickening. No central canal stenosis and no foraminal stenosis. Findings unchanged. L4-L5: Diffuse annular disc bulge with a superimposed shallow left paracentral disc protrusion that mildly indents the left ventral thecal sac resulting in mild posterior deflection of the traversing left L5 nerve root. Mild bilateral facet arthropathy. No central canal stenosis and no foraminal stenosis. Findings unchanged. L5-S1: Diffuse annular disc bulge that is in part disc osteophyte and moderate bilateral facet arthropathy and ligamentum flavum thickening. 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 No central canal stenosis. Right lateral disc osteophyte protrusion at this level continues to result in mass effect on the extraforaminal right L5 nerve root. 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 Right lateral disc osteophyte protrusion at this level continues to result in mass effect on the extraforaminal right L5 nerve root. - At L4-L5, a shallow left paracentral disc protrusion continues to result in mild posterior deflection of the traversing left L5 nerve root within the left subarticular zone.
== END 2023-09-05 18:39 | disposition home or self-care (01) ==
LOC: HO.MRI 18:38
PROVIDERS: PCP Physician Assistant; Visit Provider Physician Assistant
DX: M51.37 Other intervertebral disc degeneration, lumbosacral region (principal)
CPT/HCPCS: 72148

== ENCOUNTER 2023-09-06 10:32 | Outpatient (REF) | payer OTHER, SELFPAY ==
[2023-09-06 11:05] LABS: Hematocrit 34.3 % (37.0-47.0); Hemoglobin 11.2 g/dl (12.0-16.0); Mean Corpuscular HGB Conc 32.7 g/dl (31.0-35.0); Mean Corpuscular Hemoglobin 28.9 pg (27.0-33.0); Mean Corpuscular Volume 88.6 fL (80.0-98.0); Mean Platelet Volume 9.6 fL (9.4-12.3); Platelet Count 321 X10*3/uL (160-400); Red Blood Count 3.87 X10*6/uL (4.20-5.50); Red Cell Distribution Width 13.2 % (11.0-16.0); White Blood Count 6.8 X10*3/uL (4.8-10.8)
[2023-09-06 11:50] LABS: Alanine Aminotransferase 61 U/L (0-31); Albumin Level 4.1 g/dL (3.5-5.0); Alkaline Phosphatase 141 U/L (39-117); Anion Gap 10 (12-20); Aspartate Amino Transferase 34 U/L (5-31); Bilirubin Total 0.2 mg/dL (0.0-1.0); Blood Urea Nitrogen 15 mg/dL (9-16); Calcium 9.5 mg/dL (8.4-10.2); Carbon Dioxide 28 mmol/L (22-29); Chloride 107 mmol/L (96-108); Cholesterol 226 mg/dL (<200); Estimated Glomerular Filt Rate > 60; Glucose Fasting 99 mg/dL (60-99); HDL Cholesterol 60 mg/dL (>40); LDL Cholesterol Calculated 150 mg/dL (<100); Potassium 4.5 mmol/L (3.3-5.1); Sodium 140 mmol/L (135-145); Total Protein 7.7 g/dL (6.5-8.0); Triglycerides 82 mg/dL (<150)
== END 2023-09-06 10:33 | disposition home or self-care (01) ==
LOC: HO.LAB 10:32
PROVIDERS: PCP Physician Assistant; Visit Provider Physician Assistant
DX: E78.2 Mixed hyperlipidemia (principal)
CPT/HCPCS: 36415; 80053; 80061; 85027

== ENCOUNTER 2023-09-12 08:35 | Outpatient (AMB) | payer OTHER, SELFPAY ==
[2023-09-12 08:40] VITALS: BP 114/68; PULSE 72; O2SAT 98; BMI 25.8
--- NOTE | 2023-09-12 08:40 | MHC.PC.OV ---
Vital Signs 09/12/23 08:40 Height 5 ft 5 in Weight 155 lb BMI 25.8 BP 114/68 Blood Pressure Location Lt brachial Position Sitting Pulse 72 Pulse Source Pulse Oximeter Pulse Oximetry (%) 98 Oxygen Delivery Method Room Air Intake Visit Reasons: f/u HLD/ Lumbar spine issue. Allergies acetaminophen [Tylenol-Codeine] Adverse Reaction (Unknown, Verified 09/12/23 08:48) dizziness codeine [Tylenol-Codeine] Adverse Reaction (Unknown, Verified 09/12/23 08:48) dizziness Medication List - Last Reconciled 09/12/23 by Edvin Shahid PA-C acetaminophen ER (Pain Relief (acetaminophen)) 650 mg PO Q12H 30 days cetirizine 10 mg PO DAILY 90 days fluticasone propionate 50 mcg/actuation (Flonase Allergy Relief) 1 spray intranasal Q12H 30 days gabapentin 100 mg PO BID 30 days ibuprofen 800 mg PO Q8H 30 days olopatadine 0.2% (Pataday Once Daily Relief) 1 drp ophthalmic (eye) DAILY 30 days zolpidem (Ambien) 5 mg PO BEDTIME 30 days Tobacco use date assessed: 08/16/23 Dental Screening Dental Screen Date: 09/12/23 Did you have a dental visit in the last 12 months?: Yes Did you have a dental problem in the last 6 months where you did not have access to dental care?: No Was dental information given to patient?: Patient has dentist HPI f/u HLD/ Lumbar spine issue. HPI Details Patient is a 58-year-old female here today for follow-up visit.. Patient has a past medical history significant for hyperlipidemia, bilateral knee osteoarthritis, degenerative lumbar disc disease. Recently got lumbar spine MRI and awaiting radiology read out. She reports her lower lumbar spine pain has gotten a bit worse. Does report radicular symptoms with numbness and tingling in left foot. Has been using more Tylenol and ibuprofen. Unfortunately liver enzymes slightly elevated.. Of note MRI in 2021 does show moderate lumbar disc disease and disc herniation at L5-S1. She has done physical therapy for her chronic lumbar spine pain though has not been effective. She is now interested in seeing a spray painter about pain reduction modality. .. Hyperlipidemia:? Most recent lipid panel showing improved total cholesterol and LDL. Still has borderline high cholesterol.? Likely a familiar hyper cholesterolemia.? Not interested in starting cholesterol-lowering medication at this time. She has no cardiovascular risks. ?She has been working on being more physically active and reducing high cholesterol foods in her diet. .. Insomnia: She does use open 5 mg on a very limited p.r.n. basis for sleep. Reviewed most recent labs and did show slight elevation in her LFTs. Laboratory Tests 03/09/23 09/06/23 10:45 10:44 RBC 3.87 L Hgb 11.2 L AST 34 H ALT 61 H Cholesterol 252 H 226 H LDL Cholesterol, C alc 175 H 150 H [facility] Medical History Chronic pain syndrome Disc degeneration, lumbar Spondylosis of lumbar region without myelopathy or radiculopathy Low back pain Surgical History History of section History of wisdom tooth extraction History of cholecystectomy Family History Father Diabetes Mother No problems noted. 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 1. Little interest or pleasure in doing things: not at all 2. Feeling down, depressed, or hopeless: not at all 3. Trouble falling or staying asleep, or sleeping too much: not at all 4. Feeling tired or having little energy: not at all 5. Poor appetite or overeating: not at all 6. Feeling bad about yourself - or that you are a failure or have let yourself or your family down: not at all 7. Trouble concentrating on things, such as reading the newspaper or watching television: not at all 8. Moving or speaking so slowly that other people could have noticed. Or the opposite - being so fidgety or restless that you have been moving around a lot more than usual: not at all 9. Thoughts that you would be better off or of hurting yourself in some way: not at all Total score: 0 Depression Screening Interpretation: Negative Depression Screening Done: Yes 74082 - PHQ-9 Billing: Yes Source: Developed by Drs. Yaniv Pacheco, Stephanie Zabala, Dustin Combs and colleagues, with an educational austin from [employer]. Thrive Questionnaire Date Thrive assessed: 09/12/23 I am a: Patient What is your living situation today?: I have a steady place to live Within the past 12 months, did the food you bought not last and you didn't have the money to get more?: Never true Within the past 12 months, did you worry whether your food would run out before you got money to buy more?: Never true Do you have trouble paying for medicines?: No Do you have trouble getting transportation to medical appointments?: No Do you have trouble paying your heating and electricity bill?: No Do you have trouble taking care of your child, family member or friend?: No Do you have trouble with day-to-day activities such as bathing, preparing meals, shopping, managing finances, etc.?: No Are you currently unemployed and looking for a job?: No Are you interested in more education?: No Please select the resources that you would like help with: None Currently or been in a relationship where the following occur: no concerns reported THRIVE Score: 0 AUDIT C Alcohol Use Questionnaire (AUDIT-C) 1. How often do you have a drink containing alcohol?: Never 3. How often do you have six or more drinks on one occasion?: Never Total Score: 0 NEGIN-7 AMB Questionnaire NEGIN-7 Date NEGIN - 7 assessed: 09/12/23 Feeling nervous, anxious, or on edge: 0 = Not at all Not being able to stop or control worryin = Not at all Worrying too much about different things: 0 = Not at all Trouble relaxin = Not at all Being so restless that it is hard to sit still: 0 = Not at all Becoming easily annoyed or irritable: 0 = Not at all Feeling afraid as if something awful might happen: 0 = Not at all Total NEGIN-7 score (0-4 normal; 5-9 mild; 10-14 moderate; 15-21 severe): 0 Source: Developed by Drs. Yaniv Pacheco, Stephanie Zabala, Dustin Combs and colleagues, with an educational austin from [employer]. NGEIN-7 Assessment Billing NEGIN-7 Assessment Tool: NEGIN-7 Assessment 42169 Review of Systems Const Denies headache(s) Eyes Denies loss of vision ENT Denies vertigo, Denies dizziness, Denies headache(s) and Denies sore throat Card Denies chest pain, Denies leg edema and Denies lightheadedness Resp Denies cough, Denies hemoptysis and Denies wheezing GI Denies abdominal pain, Denies melena, Denies constipation, Denies diarrhea and Denies vomiting Denies urinary frequency, Denies dysuria and Denies urinary urgency Musc Denies arthralgias, Denies joint swelling, Denies numbness and Denies tingling Neuro Denies Abnormal speech present, Denies behavioral changes, Denies vertigo, Denies dizziness, Denies headache(s), Denies loss of vision, Denies memory loss, Denies numbness and Denies tingling Psych Denies anxiety, Denies behavioral changes, Denies depression, Denies memory loss and Denies panic attacks Reginald/Lymph Denies easy bleeding and Denies easy bruising Aller/Immun Denies wheezing Physical exam (Primary Care) Vital Signs: Last Vital Signs Pulse 72 09/12/23 08:40 BP 114/68 09/12/23 08:40 Pulse Ox 98 09/12/23 08:40 Oxygen Delivery Method Room Air 09/12/23 08:40 BMI result Body Mass Index 25.8 Tobacco/Smoking Status: Tobacco use Status Tobacco use date assessed 08/16/23 09/12/23 08:45 Patient Tobacco Use Status Never used Tobacco 09/12/23 08:45 e-Cigarette/Vaping Use Never Used 09/12/23 08:45 PHQ-9: PHQ-9 Score PHQ-9: Total score 0 09/12/23 08:52 Depression Screening Interpretation: Negative Thrive Assessment: Date of Thrive Assessment Date Thrive assessed 09/12/23 09/12/23 08:45 Currently or been in a relationship where the following occur: no concerns reported Const General: healthy appearing, no acute distress, alert and awake Nutritional Appearance: well nourished Orientation/consciousness: oriented to person, oriented to place and oriented to time HENMT Ears: TM's normal bilaterally General nose exam: Normal nasal mucous membranes and turbinates present Eyes Conjunctivae: conjunctivae normal Sclerae: sclerae normal Pupils: Equal, round and reactive pupils present Neck Neck: Yes no lymphadenopathy and Yes no JVD Thyroid: Thyroid normal Carotids: no bruits Resp Effort & Inspection: normal respiratory effort and not tachypneic Auscultation: no crackles, no rales, no rhonchi and no wheezes Cardio Rate: regular rate Rhythm: regular rhythm Heart sounds: no murmurs and normal S1 and S2 GI Palpation (GI): Soft to palpation, nontender, no hepatomegaly and no splenomegaly Auscultation: normal bowel sounds Skin General skin exam: no rashes or lesions noted and dry skin Neuro General: oriented to person, oriented to place and oriented to time Cranial nerves: Yes Equal, round and reactive pupils present Speech: No Abnormal speech present Gait exam (Neuro): Normal gait present Motor exam (neuro): no tremor noted Extrem Other: RIGHT KNEE: FULL RANGE OF MOTION, NO LIGAMENTOUS LAXITY. NOTABLE SWELLING COMPARED TO LEFT KNEE IN THE ANTERIOR AND MEDIAL THIGH REGION. Right upper extremity: full ROM Left upper extremity: full ROM Right lower extremity: full ROM; no edema Left lower extremity: full ROM; no edema Psych Mental Status: mental status grossly normal Speech and movement: Normal speech and movement present Affect: normal affect Attitude: cooperative Thought process: Normal thought process present Assessment and Plan Assessment & Plan (1) Degenerative disc disease at L5-S1 level: Code(s): M51.37 - Other intervertebral disc degeneration, lumbosacral region Plan: Patient has a history of L5-S1 disc herniation. She continues to have pain in her lower back that radiates down her left lower extremity. Does have have recent lumbar MRI. She is now willing to try pain reduction modalities. She is requesting to see [facility] pain management for possible pain reduction modality. (2) Right knee meniscal tear: Code(s): S83.206A - Unspecified tear of unspecified meniscus, current injury, right knee, initial encounter Qualifiers: Meniscus of knee: unspecified Meniscus tear of knee type: unspecified type Tear current or old: old Qualified Code(s): M23.206 - Derangement of unspecified meniscus due to old tear or injury, right knee Plan: PATIENT CONTINUES to have right knee pain and swelling. Also does have left knee pain. She has been told in the past she had meniscal tears in both knees. Due to her continued pain and swelling in her right knee will try for MRI of her right knee to evaluate for worsening meniscal tear. (3) GERD (gastroesophageal reflux disease): Code(s): K21.9 - Gastro-esophageal reflux disease without esophagitis Qualifiers: Esophagitis presence: without esophagitis Qualified Code(s): K21.9 - Gastro-esophageal reflux disease without esophagitis Plan: Patient reporting epigastric pain in bloating especially after she eats. She reports low appetite due to the discomfort in her upper abdomen. She feels as though her food is not getting digested quick enough. Likely having gastritis in the setting of a lot more NSAID use due to her pain. Advised on using an antacid to reduce her gastritis symptoms. (4) Constipation: Code(s): K59.00 - Constipation, unspecified Qualifiers: Constipation type: slow transit constipation Qualified Code(s): K59.01 - Slow transit constipation (5) Postprandial bloating: Code(s): R14.0 - Abdominal distension (gaseous) Orders: Orders Liver Panel 2 Weeks R74.8 - Abnormal levels of other serum enzymes Referrals Pain Management Referral M51.37 - Other intervertebral disc degeneration, lumbosacral region Medications: New famotidine (Pepcid) 20 mg PO DAILY 30 days 30 tabs 3RF K21.9 - Gastro-esophageal reflux disease without esophagitis triamcinolone acetonide 0.1% 1 appl topical DAILY 30 days 30 grams 1RF K13.0 - Diseases of lips Refilled zolpidem (Ambien) 5 mg PO BEDTIME 30 days 30 tabs 3RF sleep G47.00 - Insomnia, unspecified Coding Level of Care Code Est Pt Level 4 (14621) Diagnoses Degenerative disc disease at L5-S1 level M51.37 Old tear of meniscus of right knee, unspecified meniscus, unspecified tear type M23.206 Meniscus of knee: unspecified Meniscus tear of knee type: unspecified type Tear current or old: old Gastroesophageal reflux disease without esophagitis K21.9 Esophagitis presence: without esophagitis Slow transit constipation K59.01 Constipation type: slow transit constipation Postprandial bloating R14.0 Additional Codes NEGIN-7 Assessment Billing - NEGIN-7 Assessment Tool: NEGIN-7 Assessment [id number] ([id number])
== END 2023-09-12 09:29 | disposition home or self-care (01) ==
PROVIDERS: PCP Physician Assistant; Visit Provider Physician Assistant
DX: M51.37 Other intervertebral disc degeneration, lumbosacral region (principal); M23.206 Derangement of unspecified meniscus due to old tear or injury, right knee; K21.9 Gastro-esophageal reflux disease without esophagitis; K59.01 Slow transit constipation; R14.0 Abdominal distension (gaseous)
CPT/HCPCS: 99214

== ENCOUNTER 2023-10-05 10:10 | Outpatient (REF) | payer OTHER, SELFPAY ==
[2023-10-05 11:23] LABS: Alanine Aminotransferase 24 U/L (0-31); Albumin Level 4.2 g/dL (3.5-5.0); Alkaline Phosphatase 114 U/L (39-117); Aspartate Amino Transferase 19 U/L (5-31); Bilirubin Direct 0.1 mg/dL (0.0-0.5); Bilirubin Total 0.3 mg/dL (0.0-1.0); Total Protein 7.7 g/dL (6.5-8.0)
== END 2023-10-05 10:11 | disposition home or self-care (01) ==
LOC: HO.LAB 10:10
PROVIDERS: PCP Physician Assistant; Visit Provider Physician Assistant
DX: R74.8 Abnormal levels of other serum enzymes (principal)
CPT/HCPCS: 36415; 80076

== ENCOUNTER 2023-10-26 09:39 | Outpatient (AMB) | payer OTHER, SELFPAY ==
[2023-10-26 09:47] VITALS: BP 122/78; PULSE 69; O2SAT 99; BMI 26.4
--- NOTE | 2023-10-26 09:47 | A.OFFPC_ITS ---
Vital Signs 10/26/23 09:47 Height 5 ft 5 in Weight 158 lb 6 oz BMI 26.4 BP 122/78 Blood Pressure Location Rt brachial Position Sitting Pulse 69 Pulse Source Pulse Oximeter Pulse Oximetry (%) 99 Oxygen Delivery Method Room Air Intake Visit Reasons: discuss low back pain Intake Note: Pt is here for low back pain and FMLA form to be completed. Dog Races Manager Required: No Accompanied by: Self / Same As Patient Allergies acetaminophen [Tylenol-Codeine] Adverse Reaction (Unknown, Verified 10/26/23 10:09) dizziness codeine [Tylenol-Codeine] Adverse Reaction (Unknown, Verified 10/26/23 10:09) dizziness Medication List - Last Reconciled 10/26/23 by Edvin Shahid PA-C acetaminophen ER (Pain Relief (acetaminophen)) 650 mg PO Q12H 30 days cetirizine 10 mg PO DAILY 90 days famotidine (Pepcid) 20 mg PO DAILY 30 days fluticasone propionate 50 mcg/actuation (Flonase Allergy Relief) 1 spray intranasal Q12H 30 days gabapentin 100 mg PO BID 30 days ibuprofen 800 mg PO Q8H 30 days olopatadine 0.2% (Pataday Once Daily Relief) 1 drp ophthalmic (eye) DAILY 30 days triamcinolone acetonide 0.1% 1 appl topical DAILY 30 days zolpidem (Ambien) 5 mg PO BEDTIME 30 days Tobacco use date assessed: 08/16/23 Dental Screening Dental Screen Date: 09/12/23 HPI discuss low back pain HPI Details Patient is a 58-year-old female here today for a follow-up visit. Has been having lower lumbar spine pain. X-ray and MRIs showing disc disease particularly in the L5 S1 region. She continues to have pain to which he uses ibuprofen, Tylenol and gabapentin. She is asking for reasonable accommodations at work only to work 4 hours per shift per day due to the long periods of standing she does. [facility] Medical History Chronic pain syndrome Disc degeneration, lumbar Spondylosis of lumbar region without myelopathy or radiculopathy Low back pain Surgical History History of section History of wisdom tooth extraction History of cholecystectomy Family History Father Diabetes Mother No problems noted. 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 Yaniv Pacheco, Stephanie Zabala, Dustin Combs and colleagues, with an educational austin from [employer]. Review of Systems Const Denies headache(s) Eyes Denies loss of vision ENT Denies vertigo, Denies dizziness, Denies headache(s) and Denies sore throat Card Denies chest pain, Denies leg edema and Denies lightheadedness Resp Denies cough, Denies hemoptysis and Denies wheezing GI Denies abdominal pain, Denies melena, Denies constipation, Denies diarrhea and Denies vomiting Denies urinary frequency, Denies dysuria and Denies urinary urgency Musc Reports back pain, Denies arthralgias, Denies joint swelling, Denies numbness and Denies tingling Neuro Denies Abnormal speech present, Denies behavioral changes, Denies vertigo, Denies dizziness, Denies headache(s), Denies loss of vision, Denies memory loss, Denies numbness and Denies tingling Psych Denies anxiety, Denies behavioral changes, Denies depression, Denies memory loss and Denies panic attacks Reginald/Lymph Denies easy bleeding and Denies easy bruising Aller/Immun Denies wheezing Physical exam (Primary Care) Vital Signs: Last Vital Signs Pulse 69 10/26/23 09:47 BP 122/78 10/26/23 09:47 Pulse Ox 99 10/26/23 09:47 Oxygen Delivery Method Room Air 10/26/23 09:47 BMI result Body Mass Index 26.4 Tobacco/Smoking Status: Tobacco use Status Tobacco use date assessed 08/16/23 10/26/23 09:48 Patient Tobacco Use Status Never used Tobacco 10/26/23 09:48 e-Cigarette/Vaping Use Never Used 10/26/23 09:48 Thrive Assessment: Date of Thrive Assessment Date Thrive assessed 09/12/23 10/26/23 09:48 Const General: healthy appearing, no acute distress, alert and awake Nutritional Appearance: well nourished Orientation/consciousness: oriented to person, oriented to place and oriented to time HENMT Ears: TM's normal bilaterally General nose exam: Normal nasal mucous membranes and turbinates present Eyes Conjunctivae: conjunctivae normal Sclerae: sclerae normal Pupils: Equal, round and reactive pupils present Neck Neck: Yes no lymphadenopathy and Yes no JVD Thyroid: Thyroid normal Carotids: no bruits Resp Effort & Inspection: normal respiratory effort and not tachypneic Auscultation: no crackles, no rales, no rhonchi and no wheezes Cardio Rate: regular rate Rhythm: regular rhythm Heart sounds: no murmurs and normal S1 and S2 GI Palpation (GI): Soft to palpation, nontender, no hepatomegaly and no splenomegaly Auscultation: normal bowel sounds Skin General skin exam: no rashes or lesions noted and dry skin Neuro General: oriented to person, oriented to place and oriented to time Cranial nerves: Yes Equal, round and reactive pupils present Speech: No Abnormal speech present Gait exam (Neuro): Normal gait present Motor exam (neuro): no tremor noted Extrem Right upper extremity: full ROM Left upper extremity: full ROM Right lower extremity: full ROM; no edema Left lower extremity: full ROM; no edema Psych Mental Status: mental status grossly normal Speech and movement: Normal speech and movement present Affect: normal affect Attitude: cooperative Thought process: Normal thought process present Assessment and Plan Assessment & Plan (1) Degenerative disc disease at L5-S1 level: Code(s): M51.37 - Other intervertebral disc degeneration, lumbosacral region Plan: Patient has a history of L5-S1 disc herniation. She continues to have pain in her lower back that radiates down her left lower extremity. Does have have recent lumbar MRI. She is now willing to try pain reduction modalities. She is requesting to see [facility] pain management for possible pain reduction modality. * She brings in reasonable accommodation paperwork from work. Filled out so that she can only work 4 hours per work shift to reduce her long periods of standing that can make lumbar spine disc pain worse. (2) GERD (gastroesophageal reflux disease): Code(s): K21.9 - Gastro-esophageal reflux disease without esophagitis Qualifiers: Esophagitis presence: without esophagitis Qualified Code(s): K21.9 - Gastro-esophageal reflux disease without esophagitis Plan: Patient reporting epigastric pain in bloating especially after she eats. She reports low appetite due to the discomfort in her upper abdomen. She feels as though her food is not getting digested quick enough. Likely having gastritis in the setting of a lot more NSAID use due to her pain. Advised on using an antacid to reduce her gastritis symptoms. Orders: Orders Lipid Panel Today E78.2 - Mixed hyperlipidemia Complete Blood Count no Diff Today E78.2 - Mixed hyperlipidemia Comprehensive [place]. Panel Fast Today E78.2 - Mixed hyperlipidemia Medications: Refilled ibuprofen 800 mg PO Q8H 90 tabs 1RF 30 days G95.9 - Disease of spinal cord, unspecified zolpidem (Ambien) 5 mg PO BEDTIME 30 tabs 3RF sleep 30 days G47.00 - Insomnia, unspecified Coding Level of Care Code Est Pt Level 3 (74242) Diagnoses Degenerative disc disease at L5-S1 level M51.37 Gastroesophageal reflux disease without esophagitis K21.9 Esophagitis presence: without esophagitis
== END 2023-10-26 10:30 | disposition home or self-care (01) ==
PROVIDERS: PCP Physician Assistant; Visit Provider Physician Assistant
DX: M51.37 Other intervertebral disc degeneration, lumbosacral region (principal); K21.9 Gastro-esophageal reflux disease without esophagitis
CPT/HCPCS: 99213

== ENCOUNTER 2024-10-04 10:25 | Outpatient (REF) | payer OTHER, SELFPAY ==
--- NOTE | ~2024-10-04 | XR_ITS ---
EXAMINATION: XR KNEE 3 VIEWS BILATERAL HISTORY: rajesh knee pain COMPARISON: Comparison is made with the prior examination dated 02/08/2022. FINDINGS: Standing AP views of both knees and additional lateral and sunrise patellar views of the bilateral knees are submitted. Osseous mineralization is normal. There is no fracture or dislocation. There is mild spurring involving the medial compartment. Mild degenerative changes of patellofemoral compartments is again noted. The soft tissues are unremarkable. There is no joint effusion. XR/XR Knee Rajesh 3V IMPRESSION: Mild degenerative changes of the bilateral knees as described. Electronically signed by: Yaniv Curry MD 10/04/2024 01:43 PM EDT
--- OUTSIDE RECORDS SUMMARY | 2024-10-04 11:34 | XMS_ITS | Encounter Summary ---
Author Organization [employer] Address [address] [facility] [address] [place] [address] Care Team Providers Care Logging Specialist Name Role Phone Unavailable Primary Care Provider Unavailabl e Encounter Details Date Type Department Care Team (Latest Contact Info) Description 02/22/2019 Abstract [facility] CONVERSIONS Dental, Provider, DDS Social History [...]
--- OUTSIDE RECORDS SUMMARY | 2024-10-04 11:34 | XMS_ITS | Clinical Summary ---
Author Organization [employer] Address [address] [facility] [address] [place] [address] Care Team Providers Care Joy Operator Helper Name Role Phone Unavailable Primary Care Provider [...]
[2024-10-04 12:03] LABS: Hematocrit 34.4 % (37.0-47.0); Hemoglobin 11.5 g/dl (12.0-16.0); Mean Corpuscular HGB Conc 33.4 g/dl (31.0-35.0); Mean Corpuscular Hemoglobin 29.4 pg (27.0-33.0); Mean Platelet Volume 10.1 fL (9.4-12.3); Platelet Count 310 X10*3/uL (160-400); Red Blood Count 3.91 X10*6/uL (4.20-5.50); Red Cell Distribution Width 13.6 % (11.0-16.0); White Blood Count 6.4 X10*3/uL (4.8-10.8)
[2024-10-04 12:17] LABS: Anion Gap 14 (12-20)
[2024-10-04 12:34] LABS: Alanine Aminotransferase 32 U/L (0-31); Albumin Level 4.3 g/dL (3.5-5.0); Alkaline Phosphatase 121 U/L (39-117); Aspartate Amino Transferase 29 U/L (5-31); Bilirubin Total 0.3 mg/dL (0.0-1.0); Blood Urea Nitrogen 14 mg/dL (9-16); Calcium 9.7 mg/dL (8.4-10.2); Carbon Dioxide 23 mmol/L (22-29); Chloride 110 mmol/L (96-108); Cholesterol 254 mg/dL (<200); Estimated Glomerular Filt Rate > 60; Glucose Fasting 91 mg/dL (60-99); HDL Cholesterol 63 mg/dL (>40); LDL Cholesterol Calculated 175 mg/dL (<100); Potassium 3.7 mmol/L (3.3-5.1); Sodium 143 mmol/L (135-145); Total Protein 7.8 g/dL (6.5-8.0); Triglycerides 80 mg/dL (<150)
[2024-10-04 12:43] LABS: HBS Num1 0.27 mIU/mL (0-7.99); ~Hepatitis B Surface Antibody NONREACTIVE (Nonreactive)
[2024-10-08 22:53] LABS: Rubella IgG Antibody 2.69 Index; Rubeola IgG (Measles) >300.00 AU/mL
== END 2024-10-04 10:26 | disposition home or self-care (01) ==
LOC: HO.XRAY 10:25
PROVIDERS: Absent Provider Physician Assistant; PCP Physician Assistant
DX: E78.2 Mixed hyperlipidemia (principal); M25.561 Pain in right knee; M25.562 Pain in left knee; M47.816 Spondylosis without myelopathy or radiculopathy, lumbar region; M51.379 Other intervertebral disc degeneration, lumbosacral region without mention of lumbar back pain or lower extremity pain; J30.9 Allergic rhinitis, unspecified; G47.00 Insomnia, unspecified; M17.10 Unilateral primary osteoarthritis, unspecified knee; G95.9 Disease of spinal cord, unspecified; Z23 Encounter for immunization; Z78.9 Other specified health status
CPT/HCPCS: 36415; 73562; 80053; 80061; 85027; 86706; 86735; 86762; 86765; 86787; 99212

== ENCOUNTER 2024-10-04 10:25 | Outpatient (AMB) | payer OTHER, SELFPAY ==
--- NOTE | 2024-10-04 10:31 | MHC.PC.OV ---
Vital Signs 10/04/24 10:34 Height 5 ft 5 in Weight 159 lb 8 oz BMI 26.5 BP 120/60 Blood Pressure Location Lt brachial Position Sitting Pulse 68 Pulse Source Pulse Oximeter Temp 97.1 F Temp Source Temporal Artery Scan Pulse Oximetry (%) 98 Oxygen Delivery Method Room Air Intake Visit Reasons: B/L knee pain Intake Note: Patient is here to follow up on B/L knee pain. Anesthesia Resident Required: No Peer Counselor: Not Required per policy Accompanied by: Self / Same As Patient Allergies acetaminophen [Tylenol-Codeine] Adverse Reaction (Unknown, Verified 10/04/24 10:34) dizziness codeine [Tylenol-Codeine] Adverse Reaction (Unknown, Verified 10/04/24 10:34) dizziness Medication List - Last Reconciled 10/04/24 by Rosalinda Walls PA-C acetaminophen ER (Pain Relief (acetaminophen)) 650 mg PO Q12H 30 days cetirizine 10 mg PO DAILY 90 days famotidine (Pepcid) 20 mg PO DAILY 30 days fluticasone propionate 50 mcg/actuation (Flonase Allergy Relief) 1 spray intranasal Q12H 30 days ibuprofen 800 mg PO Q8H 30 days olopatadine 0.2% (Pataday Once Daily Relief) 1 drp ophthalmic (eye) DAILY 30 days triamcinolone acetonide 0.1% 1 appl topical DAILY 30 days zolpidem (Ambien) 5 mg PO BEDTIME 30 days Tobacco use date assessed: 10/04/24 Dental Screening Dental Screen Date: 10/04/24 Did you have a dental visit in the last 12 months?: Yes Did you have a dental problem in the last 6 months where you did not have access to dental care?: No Was dental information given to patient?: Patient has dentist HPI B/L knee pain HPI Details 59-year-old female with past medical history of degenerative disc disease, cervical myelopathy, GERD last seen 10/2023 coming in for acute problem. Presenting with bilateral knee pain. Pain and swelling in the knees have progressively worsened over recent months. A history of knee osteoarthritis and meniscal degeneration; no inciting trauma reported. Describes discomfort as having impact on mobility, increased by weight-bearing and movement. Reports past imaging studies with noted meniscal degeneration, with interest in repeat imaging due to ongoing severity. Complains occasional low back pain sometimes accompanying the knee discomfort affecting her sleep. She does have an extensive history of low back pain. [facility] Medical History Chronic pain syndrome Disc degeneration, lumbar Spondylosis of lumbar region without myelopathy or radiculopathy Low back pain Surgical History History of section History of wisdom tooth extraction History of cholecystectomy Family History Father Diabetes Mother No problems noted. 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 1. Little interest or pleasure in doing things: not at all 2. Feeling down, depressed, or hopeless: not at all 3. Trouble falling or staying asleep, or sleeping too much: not at all 4. Feeling tired or having little energy: not at all 5. Poor appetite or overeating: not at all 6. Feeling bad about yourself - or that you are a failure or have let yourself or your family down: not at all 7. Trouble concentrating on things, such as reading the newspaper or watching television: not at all 8. Moving or speaking so slowly that other people could have noticed. Or the opposite - being so fidgety or restless that you have been moving around a lot more than usual: not at all 9. Thoughts that you would be better off or of hurting yourself in some way: not at all Total score: 0 Depression Screening Interpretation: Negative Depression Screening Done: Yes Source: Developed by Drs. Yaniv Pacheco, Stephanie Zabala, Dustin Combs and colleagues, with an educational austin from [employer]. Thrive Questionnaire Date Thrive assessed: 10/04/24 I am a: Patient What is your living situation today?: I have a steady place to live Within the past 12 months, did the food you bought not last and you didn't have the money to get more?: Never true Within the past 12 months, did you worry whether your food would run out before you got money to buy more?: Never true Do you have trouble paying for medicines?: No Do you have trouble getting transportation to medical appointments?: No Do you have trouble paying your heating and electricity bill?: No Do you have trouble taking care of your child, family member or friend?: No Do you have trouble with day-to-day activities such as bathing, preparing meals, shopping, managing finances, etc.?: No Are you currently unemployed and looking for a job?: No Are you interested in more education?: No Please select the resources that you would like help with: None Currently or been in a relationship where the following occur: No concerns reported THRIVE Score: 0 AUDIT C Alcohol Use Questionnaire (AUDIT-C) 1. How often do you have a drink containing alcohol?: Never Total Score: 0 NEGIN-7 AMB Questionnaire NEGIN-7 Date NEGIN - 7 assessed: 10/04/24 Feeling nervous, anxious, or on edge: 0 = Not at all Not being able to stop or control worryin = Not at all Worrying too much about different things: 0 = Not at all Trouble relaxin = Not at all Being so restless that it is hard to sit still: 0 = Not at all Becoming easily annoyed or irritable: 0 = Not at all Feeling afraid as if something awful might happen: 0 = Not at all Total NEGIN-7 score (0-4 normal; 5-9 mild; 10-14 moderate; 15-21 severe): 0 Source: Developed by Drs. Yaniv Pacheco, Stephanie Zabala, Dustin Combs and colleagues, with an educational austin from [employer]. Review of Systems Const Denies body aches, Denies chills, Denies fever(s) and Denies poor appetite Eyes Reports no additional complaints Card Denies chest pain and Denies dyspnea Resp Denies dyspnea GI Denies nausea and Denies vomiting Reports no additional complaints Musc Reports as per HPI and Reports abnormal gait Skin/Breast Reports system reviewed and no additional complaints, except as documented Neuro Reports abnormal gait Psych Reports no additional complaints Physical exam (Primary Care) Vital Signs: Last Vital Signs Temp 97.1 F 10/04/24 10:34 Pulse 68 10/04/24 10:34 BP 120/60 10/04/24 10:34 Pulse Ox 98 10/04/24 10:34 Oxygen Delivery Method Room Air 10/04/24 10:34 BMI result Body Mass Index 26.5 Tobacco/Smoking Status: Tobacco use Status Tobacco use date assessed 10/04/24 10/04/24 10:39 Patient Tobacco Use Status Never used Tobacco 10/04/24 10:39 e-Cigarette/Vaping Use Never Used 10/04/24 10:39 PHQ-9: PHQ-9 Score PHQ-9: Total score 0 10/04/24 10:41 Depression Screening Interpretation: Negative Thrive Assessment: Date of Thrive Assessment Date Thrive assessed 10/04/24 10/04/24 10:39 Currently or been in a relationship where the following occur: No concerns reported Const General: cooperative, healthy appearing, comfortable and no acute distress Orientation/consciousness: patient oriented x3 HENMT Head: Yes normocephalic Ears: hearing grossly normal bilaterally General nose exam: Normal external nose present Eyes General: appearance normal, both eyes and all related structures Conjunctivae: conjunctivae normal Neck Neck: Yes full ROM and Yes no lymphadenopathy Resp Effort & Inspection: normal respiratory effort Cardio Rate: regular rate Skin General skin exam: no rashes or lesions noted Neuro General: patient oriented x3 Gait exam (Neuro): Normal gait present Extrem Other: No tenderness to palpation over bilateral knees. No significant swelling of bilateral lower extremities. No calf tenderness, warmth, redness. General: Yes normal to inspection, Yes full ROM and No edema Psych Affect: normal affect Attitude: cooperative Insight: Good insight present (Psych) Judgement: Good judgement present (Psych) Coding Level of Care Code Est Pt Level 3 (03736) Diagnoses Bilateral knee pain M25.561; M25.562 Spondylosis of lumbar region without myelopathy or radiculopathy M47.816 Degenerative disc disease at L5-S1 level M51.37 Assessment & Plan Assessment & Plan (1) Bilateral knee pain: Code(s): M25.561 - Pain in right knee; M25.562 - Pain in left knee Category: Medical Plan: I plan to obtain updated X-ray imaging of the patient's knees to evaluate the progression of her osteoarthritis and meniscal degeneration. Referral to orthopedic specialists is necessary, considering the chronicity of symptoms and potential need for advanced interventions like MRI or injections. Cortisone and hyaluronic acid injections were discussed as treatment options. (2) Spondylosis of lumbar region without myelopathy or radiculopathy: Code(s): M47.816 - Spondylosis without myelopathy or radiculopathy, lumbar region Category: Medical Plan: Additionally, I addressed her low back pain, considering non-invasive pain management strategies and potential referral to a net application support specialist. During this period, oral analgesics were recommended, ensuring the patient has no contraindications. Follow-up is planned to integrate new imaging findings with ongoing care. (3) Degenerative disc disease at L5-S1 level: Code(s): M51.37 - Other intervertebral disc degeneration, lumbosacral region Category: Medical Plan: See above Plan This note was constructed using voice recognition software. While every effort has been made to ensure accuracy and college or university department head, still areas may have been included sometimes these areas may affect the content or meeting of the given symptoms. Total time spent caring for the patient today was 20 minutes. This includes time spent before the visit reviewing the chart, time spent during the visit, and time spent after the visit and documentation. Patient was informed and verbally consented to the use of an ambient scribe for clinic note documentation during this visit. Orders: Orders XR Knee Rajesh 3V Today M25.561 - Pain in right knee, M25.562 - Pain in left knee Referrals Orthopedics Referral M25.561 - Pain in right knee, M25.562 - Pain in left knee Orthopedics Referral M47.816 - Spondylosis without myelopathy or radiculopathy, lumbar region, M51.37 - Other intervertebral disc degeneration, lumbosacral region Medications: New diclofenac sodium 1% (Voltaren Arthritis Pain) apply to single elbow, wrist or hand; for hand includes palm/fingers/back of hand 2 grams topical QID 50 grams 0RF fexofenadine (Allergy Relief (fexofenadine)) 180 mg PO DAILY 30 tabs 0RF Refilled cetirizine 10 mg PO DAILY 90 days 90 tabs 1RF J30.9 - Allergic rhinitis, unspecified zolpidem (Ambien) 5 mg PO BEDTIME 30 days 30 tabs 3RF sleep G47.00 - Insomnia, unspecified olopatadine 0.2% (Pataday Once Daily Relief) 1 drp ophthalmic (eye) DAILY 30 days 2.5 mL 1RF J30.9 - Allergic rhinitis, unspecified acetaminophen ER (Pain Relief (acetaminophen)) 650 mg PO Q12H 30 days 60 tabs 3RF M17.10 - Unilateral primary osteoarthritis, unspecified knee ibuprofen 800 mg PO Q8H 30 days 90 tabs 1RF G95.9 - Disease of spinal cord, unspecified
[2024-10-04 10:34] VITALS: BP 120/60; PULSE 68; TEMP 36.2; O2SAT 98; BMI 26.5
--- OUTSIDE RECORDS SUMMARY | 2024-10-04 10:44 | XMS_ITS | Encounter Summary ---
Author Organization [employer] Address [address] [facility] [address] [place] [address] Care Team Providers Care Foster Care Therapist Name Role Phone Unavailable Primary Care Provider Unavailabl e Encounter Details Date Type Department Care Team (Latest Contact Info) Description 02/22/2019 Abstract [facility] CONVERSIONS Dental, Provider, DDS Social History Tobacco Use Types Packs/Day Years Used Date Smoking Tobacco: Never Assessed Comments Unknown Sex and Gender Information Value Date Recorded Sex Assigned at Female 03/21/2022 10:36 AM EDT Legal Sex Female 10:36 AM EDT Gender Identity Not on file Sexual Orientation Straight 03/21/2022 10 :36 AM EDT documented as of this encounter Plan of Treatment Not on file documented as of this encounter Visit Diagnoses Not on filedocumented in this encounter
--- OUTSIDE RECORDS SUMMARY | 2024-10-04 10:44 | XMS_ITS | Clinical Summary ---
Author Organization [employer] Address [address] [facility] [address] [address] [place] [address] Care Team Providers Care Sas Programmer Analyst Name Role Phone Unavailable Primary Care Provider Unavailabl e Social History Tobacco Use Types Packs/Day Years Used Date Smoking Tobacco: Never Assessed Comments Unknown Sex and Gender Information Value Date Recorded Sex Assigned at Female 03/21/2022 10:36 AM EDT Legal Sex Female 10:36 AM EDT Gender Identity Not on file Sexual Orientation Straight 03/21/2022 10 :36 AM EDT Plan of Treatment Health Maintenance Due Date Last Done Comments CT Colonography 1967 Colonoscopy 1967 Colorectal Cancer Screening 1967 Depression Screening 1967 FIT DNA/Cologuard 1967 FIT 1967 FOBT 1967 Sigmoidoscopy 1967 Alcohol/Substance Use Screening 1979 Tobacco Screening 1979 DTaP/Tdap/Td Vaccines (1 - Tdap) 1986 Hepatitis B Vaccines (1 of 3 - 19+ 3-dose series) 1986 Pap Smear 01/17/1988 Cervical Cancer Screening 1997 HPV/Cotest 1997 Mammogram 2007 Pneumococcal Vaccine: 50+ Ye ars (1 of 1 - PCV) 2017 Zoster Vaccines (1 of 2) 2017 COVID-19 Vaccine ( - 2023-2 5 season) 2024 Influenza Vaccine (#1) 2024 RSV Patients and Pa tients Aged 60 years or older (1 - 1-dose 75+ series) 2042 HIB Vaccines Aged Out No longer eligi ble based on patient's age to complete this topic HPV Vaccines Aged Out No longer eligi ble based on patient's age to complete this topic Hepatitis A Vaccines Aged Out No long er eligible based on patient's age to complete this topic IPV Vaccines Aged Out No longer eligi ble based on patient's age to complete this topic Meningococcal B Vaccine Aged Out No l onger eligible based on patient's age to complete this topic Meningococcal Vaccine Aged Out No sanjay dorina eligible based on patient's age to complete this topic RSV under 20 months Aged Out No longe r eligible based on patient's age to complete this topic Rotavirus Vaccines Aged Out No longer eligible based on patient's age to complete this topic
--- OUTSIDE RECORDS SUMMARY | 2024-10-04 10:44 | XMS_ITS | Patient Health Record ---
Author Organization [facility] Address [address] [place] [address] Care Team Providers Care Sap Analyst Name Role Phone JACQUELINE BAH Primary Care Provider Marium Weems Unavailable [phone] Allergies Allergen (clinical drug ingredient) Drug/Non Drug Allergy documented on EMR Reaction Allergy Type Onset Date Status Tylenol/Codeine #3 Dizziness Drug Allergy Active Reason For Referral No Information Medications Medication SIG (Take, Route, Frequency, Duration) Notes Start Date End Date Status Premarin 0.625 MG/GM 1 GRAM Vaginal & vu lvar THRICE A WEEK FOR A MONTH THEN TWICE A WEEK for 90 days 07/16/2020 Active Amitriptyline HCl 25 MG TAKE 1 TABLET BY MOUTH ONCE DAILY AT BEDTIME Oral for 30 Active Diclofenac Potassium 50 MG TAKE 1 TABLET BY MOUTH TWICE DAILY WITH FOOD Oral for 30 Active Problems Problem Type SNOMED Code ICD Code Onset Dates Problem Status W/U Status Risk Notes Problem Postmenopausal atrophic vaginitis (21462236) Postmenopausal atrophic vaginitis (N95.2) Active confirmed Problem Atrophy of vulva (N90.5) Active confirmed Problem Absence of menstruation (67815773) Absence of menstruation (626.0) Active confirmed Major Problem Postmenopausal atrophic vaginitis (07683264) Postmenopausal atrophic vaginitis (627.3) Active confirmed Diag Problem Gynecological examination normal (431879328261296) Routine gynecological examination (V72.31) Active confirmed Plan Of Treatment Pending Test Test Name Order Date MAMMOGRAM, SCREENING 07/22/2014 THIN PREP,HPV,MIK IF HPV+ (>29YR)(SCRN) 09/13/2016 Insurance Providers Payer Name Payer Address Payer Phone Subscriber Number Group Number Insured Name Patient Relationship to Insured Coverage Start Date Coverage End Date [facility] [address] [address] [place] [address] [id number] JULY ACOSTA Self - patient is the insured Medical (General) History Medical History History ICD Code Postmenopausal atrophic vaginitis N95.2 Amenorrhea, unspecified N91.2 Menopausal and female climacteric states N95.1 Surgical History Surgery Date(Month/Year) Left Breast Biopsy x 3 Cholecystectomy Green Teeth Extraction Hospitalization History Reason Date(Month/Year) 3 C-Sections See Surgical Hx
== END 2024-10-04 11:01 | disposition home or self-care (01) ==
LOC: HO.HMCH 10:26
PROVIDERS: PCP Physician Assistant
DX: M25.562 Pain in left knee (principal); M25.561 Pain in right knee; M47.816 Spondylosis without myelopathy or radiculopathy, lumbar region; M51.379 Other intervertebral disc degeneration, lumbosacral region without mention of lumbar back pain or lower extremity pain

== ENCOUNTER → 2024-10-04 11:24 | Outpatient (BNV) | payer OTHER, SELFPAY | PROVIDERS: Absent Provider Physician Assistant; PCP Physician Assistant; Visit Provider Radiology Diagnostic Radiology | DX: M25.561 Pain in right knee (principal); M25.562 Pain in left knee | CPT/HCPCS: 73562 ==

== ENCOUNTER 2024-11-06 14:14 | Outpatient (AMB) | payer OTHER, SELFPAY ==
--- NOTE | 2024-11-06 14:34 | A.OFFPC_ITS ---
Vital Signs 11/06/24 14:35 Height 5 ft 5 in Weight 160 lb BMI 26.6 BP 124/76 Blood Pressure Location Lt brachial Position Sitting Pulse 80 Pulse Source Pulse Oximeter Temp 97.1 F Temp Source Temporal Artery Scan Pulse Oximetry (%) 98 Oxygen Delivery Method Room Air Intake Visit Reasons: Cold , cough Optical Mechanic Required: No Accompanied by: Self / Same As Patient Allergies acetaminophen (Tylenol-Codeine) Adverse Reaction (Unknown, Verified 11/06/24 14:52) dizziness codeine (Tylenol-Codeine) Adverse Reaction (Unknown, Verified 11/06/24 14:52) dizziness Medication List - Last Reconciled 11/06/24 by Edvin Shahid PA-C acetaminophen ER (Pain Relief (acetaminophen)) 650 mg PO Q12H 30 days cetirizine 10 mg PO DAILY 90 days diclofenac sodium 1% (Voltaren Arthritis Pain) 2 grams topical QID famotidine (Pepcid) 20 mg PO DAILY 30 days fexofenadine (Allergy Relief (fexofenadine)) 180 mg PO DAILY fluticasone propionate 50 mcg/actuation (Flonase Allergy Relief) 1 spray intranasal Q12H 30 days ibuprofen 800 mg PO Q8H 30 days olopatadine 0.2% (Pataday Once Daily Relief) 1 drp ophthalmic (eye) DAILY 30 days triamcinolone acetonide 0.1% 1 appl topical DAILY 30 days zolpidem (Ambien) 5 mg PO BEDTIME 30 days Tobacco use date assessed: 10/04/24 Dental Screening Dental Screen Date: 10/04/24 HPI Cold , cough HPI Details The patient is a 59-year-old female presenting with a persistent cough and congestion. The cough began over two weeks ago, initially accompanied by a sore throat, which has since resolved. The patient reports persistent congestion and a cough that has improved but not completely resolved. Yjfe-ocy-ouiioht medications, including Flonase and Sudafed, provided some relief. There have been no fevers, and the patient denies any significant sputum production. The patient also reports a painful ulcer on the side of her tongue, which she believes may be related to her illness. The ulcer was noted during the examination and is thought to be a result of the illness. The patient has a history of hyperlipidemia, which she has been managing through dietary modifications. Despite these efforts, her cholesterol levels remain elevated, possibly due to genetic factors. The patient also experiences chronic knee and back pain, attributed to osteoarthritis, which has been confirmed by x-ray showing mild degenerative changes. She reports increased swelling and discomfort with prolonged standing at work. [facility] Medical History Chronic pain syndrome Disc degeneration, lumbar Spondylosis of lumbar region without myelopathy or radiculopathy Low back pain Surgical History History of section History of wisdom tooth extraction History of cholecystectomy Family History Father Diabetes Mother No problems noted. 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 Yaniv Pacheco, Stephanie Zabala, Dustin Combs and colleagues, with an educational austin from [employer]. Review of Systems Const Denies headache(s) Eyes Denies loss of vision ENT Denies vertigo, Denies dizziness, Denies headache(s) and Reports sore throat Card Denies chest pain, Denies leg edema and Denies lightheadedness Resp Reports cough, Denies hemoptysis and Denies wheezing GI Denies abdominal pain, Denies melena, Denies constipation, Denies diarrhea and Denies vomiting Denies urinary frequency, Denies dysuria and Denies urinary urgency Musc Denies arthralgias, Denies joint swelling, Denies numbness and Denies tingling Neuro Denies Abnormal speech present, Denies behavioral changes, Denies vertigo, Denies dizziness, Denies headache(s), Denies loss of vision, Denies memory loss, Denies numbness and Denies tingling Psych Denies anxiety, Denies behavioral changes, Denies depression, Denies memory loss and Denies panic attacks Reginald/Lymph Denies easy bleeding and Denies easy bruising Aller/Immun Denies wheezing Physical exam (Primary Care) Vital Signs: Last Vital Signs Temp 97.1 F 11/06/24 14:35 Pulse 80 11/06/24 14:35 BP 124/76 11/06/24 14:35 Pulse Ox 98 11/06/24 14:35 Oxygen Delivery Method Room Air 11/06/24 14:35 BMI result Body Mass Index 26.6 Tobacco/Smoking Status: Tobacco use Status Tobacco use date assessed 10/04/24 11/06/24 14:36 Patient Tobacco Use Status Never used Tobacco 11/06/24 14:36 e-Cigarette/Vaping Use Never Used 11/06/24 14:36 Thrive Assessment: Date of Thrive Assessment Date Thrive assessed 10/04/24 11/06/24 14:36 Const General: healthy appearing, no acute distress, alert and awake Nutritional Appearance: well nourished Orientation/consciousness: oriented to person, oriented to place and oriented to time HENMT Ears: TM's normal bilaterally General nose exam: Normal nasal mucous membranes and turbinates present Eyes Conjunctivae: conjunctivae normal Sclerae: sclerae normal Pupils: Equal, round and reactive pupils present Neck Neck: Yes no lymphadenopathy and Yes no JVD Thyroid: Thyroid normal Carotids: no bruits Resp Effort & Inspection: normal respiratory effort and not tachypneic Auscultation: no crackles, no rales, no rhonchi and no wheezes Cardio Rate: regular rate Rhythm: regular rhythm Heart sounds: no murmurs and normal S1 and S2 GI Palpation (GI): Soft to palpation, nontender, no hepatomegaly and no splenomegaly Auscultation: normal bowel sounds Skin General skin exam: no rashes or lesions noted and dry skin Neuro General: oriented to person, oriented to place and oriented to time Cranial nerves: Yes Equal, round and reactive pupils present Speech: No Abnormal speech present Gait exam (Neuro): Normal gait present Motor exam (neuro): no tremor noted Extrem Other: RIGHT KNEE NOTABLY SWOLLEN COMPARED TO LEFT KNEE Right upper extremity: full ROM Left upper extremity: full ROM Right lower extremity: full ROM; no edema Left lower extremity: full ROM; no edema Psych Mental Status: mental status grossly normal Speech and movement: Normal speech and movement present Affect: normal affect Attitude: cooperative Thought process: Normal thought process present Coding Level of Care Code Est Pt Level 3 (29684) Diagnoses Bronchitis J40 Primary osteoarthritis of right knee M17.11 Osteoarthritis type: primary Laterality: right Assessment & Plan Assessment & Plan (1) Bronchitis: Code(s): J40 - Bronchitis, not specified as acute or chronic Category: Medical Plan: The patient will be prescribed a course of prednisone to reduce inflammation and an antibiotic to address any potential bacterial component. The patient is advis ed to start with prednisone and monitor symptoms, using the antibiotic if symptoms do not improve. (2) Knee osteoarthritis: Code(s): M17.10 - Unilateral primary osteoarthritis, unspecified knee Category: Medical Qualifiers: Osteoarthritis type: primary Laterality: right Qualified Code(s): M17.11 - Unilateral primary osteoarthritis, right knee Plan: The patient is advised to consult with an test specialist for further management, including potential cortisone injections. A note will be provided to limit standing at work to reduce swelling and discomfort. Orders: Orders Complete Blood Count no Diff 11/06/24 E78.2 - Mixed hyperlipidemia Comprehensive [place]. Panel Fast 11/06/24 E78.2 - Mixed hyperlipidemia Lipid Panel 11/06/24 E78.2 - Mixed hyperlipidemia Medications: New prednisone Take 3 tablets x2 days, 2 tablets x2 days , 1 tablet x2 days 10 mg PO DIRECTED 12 tabs 0RF 6 days J40 - Bronchitis, not specified as acute or chronic azithromycin For 250 mg dose pack: take 500 mg today (day 1), then 250 mg for 4 days (days 2-5) PO 6 tabs 0RF J40 - Bronchitis, not specified as acute or chronic Refilled fluticasone propionate 50 mcg/actuation (Flonase Allergy Relief) administer into each nostril 1 spray intranasal Q12H 16 grams 1RF 30 days J30.1 - Allergic rhinitis due to pollen
[2024-11-06 14:35] VITALS: BP 124/76; PULSE 80; TEMP 36.2; O2SAT 98; BMI 26.6
--- OUTSIDE RECORDS SUMMARY | 2024-11-06 16:23 | XMS_ITS | Encounter Summary ---
Author Organization [facility] Address [address] [place] [address] Care Team Providers Care Shank Maker Name Role Phone Unavailable Primary Care Provider Unavailabl e Encounter Details Date Type Department Care Team (Latest Contact Info) Description 02/22/2019 Abstract [facility] CONVERSIONS Dental, Provider, DDS Social History [...]
== END 2024-11-06 15:07 | disposition home or self-care (01) ==
LOC: HO.HMCH 14:15
PROVIDERS: PCP Physician Assistant; Visit Provider Physician Assistant
DX: J40 Bronchitis, not specified as acute or chronic (principal); M17.11 Unilateral primary osteoarthritis, right knee

== ENCOUNTER → 2024-11-06 14:14 | Outpatient (BNVA) | payer OTHER, SELFPAY | PROVIDERS: PCP Physician Assistant; Visit Provider Physician Assistant | DX: J40 Bronchitis, not specified as acute or chronic (principal); M17.11 Unilateral primary osteoarthritis, right knee; E78.2 Mixed hyperlipidemia; J30.1 Allergic rhinitis due to pollen; M54.9 Dorsalgia, unspecified; M25.569 Pain in unspecified knee; L98.499 Non-pressure chronic ulcer of skin of other sites with unspecified severity | CPT/HCPCS: 99212 ==

== ENCOUNTER 2024-11-21 10:05 | Outpatient (REF) | payer OTHER, SELFPAY ==
--- OUTSIDE RECORDS SUMMARY | 2024-11-21 10:47 | XMS_ITS | Patient Health Record ---
Author Organization [facility] Address [address] [place] [address] Care Team Providers Care Director Of Occupational Health Name Role Phone JACQUELINE BAH Primary Care Provider Marium Weems [phone] Allergies Allergen (clinical drug ingredient) Drug/Non Drug Allergy documented on EMR Reaction Allergy Type Onset Date Status Tylenol/Codeine #3 Dizziness Drug Allergy Active Reason For Referral No Information Medications Medication SIG (Take, Route, Frequency, Duration) Notes Start Date End Date Status Premarin 0.625 MG/GM 1 GRAM Vaginal & vu lvar THRICE A WEEK FOR A MONTH THEN TWICE A WEEK; Duration: 90 days 07/16/2020 Active Amitriptyline HCl 25 MG TAKE 1 TABLET BY MOUTH ONCE DAILY AT BEDTIME Oral; Duration: 30 Active Diclofenac Potassium 50 MG TAKE 1 TABLET BY MOUTH TWICE DAILY WITH FOOD Oral; Duration: 30 Active Problems Problem Type SNOMED Code ICD Code Onset Dates Problem Status W/U Status Risk Notes Problem Postmenopausal atrophic vaginitis (06122384) Postmenopausal atrophic vaginitis (N95.2) Active confirmed Problem Atrophy of vulva (708561912) Atrophy of vulva (N90.5) Active confirmed Problem Absence of menstruation (76116646) Absence of menstruation (626.0) Active confirmed Major Problem Postmenopausal atrophic vaginitis (27057265) Postmenopausal atrophic vaginitis (627.3) Active confirmed Diag Problem Routine gynecological examination (V72.31) Active confirmed Plan Of Treatment Pending Test Test Name Order Date MAMMOGRAM, SCREENING 07/22/2014 THIN PREP,HPV,MIK IF HPV+ (>29YR)(SCRN) 09/13/2016 Insurance Providers Payer Name Payer Address Payer Phone Subscriber Number Group Number Insured Name Patient Relationship to Insured Coverage Start Date Coverage End Date [facility] [address] [address] [place] [address] [id number] JULY ACOSTA Self - patient is the insured Medical (General) History Medical History History ICD Code Postmenopausal atrophic vaginitis N95.2 Amenorrhea, unspecified N91.2 Menopausal and female climacteric states N95.1 Surgical History Surgery Date(Month/Year) Left Breast Biopsy x 3 Cholecystectomy [place] Teeth Extraction Hospitalization History Reason Date(Month/Year) 3 C-Sections See Surgical Hx
--- OUTSIDE RECORDS SUMMARY | 2024-11-21 10:47 | XMS_ITS | Encounter Summary ---
Author Organization [employer] Address [address] [place] [address] Care Team Providers Care Hand I Thermal Cutter Name Role Phone Unavailable Primary Care Provider Unavailabl e Encounter Details Date Type Department Care Team (Latest Contact Info) Description 02/22/2019 Abstract [facility] CONVERSIONS Dental, Provider, DDS Social [...]
[2024-11-21 11:13] LABS: Hematocrit 33.5 % (37.0-47.0); Hemoglobin 11.1 g/dl (12.0-16.0); Mean Corpuscular HGB Conc 33.1 g/dl (31.0-35.0); Mean Corpuscular Hemoglobin 29.4 pg (27.0-33.0); Mean Corpuscular Volume 88.6 fL (80.0-98.0); NRBC Abs Auto 0.000 X10*3/uL (0.0-0.012); NRBC Pct Auto 0.0 /100WBC (0.0-0.2); Platelet Count 348 X10*3/uL (160-400); Red Blood Count 3.78 X10*6/uL (4.20-5.50); White Blood Count 5.4 X10*3/uL (4.8-10.8)
[2024-11-21 11:43] LABS: Alanine Aminotransferase 32 U/L (0-31); Albumin Level 4.1 g/dL (3.5-5.0); Alkaline Phosphatase 115 U/L (39-117); Anion Gap 11 (12-20); Aspartate Amino Transferase 22 U/L (5-31); Blood Urea Nitrogen 10 mg/dL (9-16); Calcium 8.9 mg/dL (8.4-10.2); Carbon Dioxide 23 mmol/L (22-29); Chloride 109 mmol/L (96-108); Cholesterol 243 mg/dL (<200); Estimated Glomerular Filt Rate > 60; HDL Cholesterol 53 mg/dL (>40); Potassium 4.1 mmol/L (3.3-5.1); Sodium 139 mmol/L (135-145); Total Protein 7.0 g/dL (6.5-8.0); Triglycerides 94 mg/dL (<150)
== END 2024-11-21 10:06 | disposition home or self-care (01) ==
LOC: HO.LAB 10:05
PROVIDERS: PCP Physician Assistant; Visit Provider Physician Assistant
DX: Z00.00 Encounter for general adult medical examination without abnormal findings (principal); M23.51 Chronic instability of knee, right knee; E78.2 Mixed hyperlipidemia; G47.00 Insomnia, unspecified; K21.9 Gastro-esophageal reflux disease without esophagitis; Z13.31 Encounter for screening for depression; Z13.39 Encounter for screening examination for other mental health and behavioral disorders
CPT/HCPCS: 36415; 80053; 80061; 85027; 96127; 99396

== ENCOUNTER 2024-11-21 10:43 | Outpatient (AMB) | payer OTHER, SELFPAY ==
--- NOTE | 2024-11-21 10:53 | A.OFFPC_ITS ---
Vital Signs 11/21/24 11:01 Height 5 ft 5 in Weight 160 lb BMI 26.6 BP 116/64 Pulse 71 Pulse Oximetry (%) 98 Intake Visit Reasons: PE Personal Service Workers Required: No Accompanied by: Self / Same As Patient Allergies acetaminophen (Tylenol-Codeine) Adverse Reaction (Unknown, Verified 11/21/24 11:17) dizziness codeine (Tylenol-Codeine) Adverse Reaction (Unknown, Verified 11/21/24 11:17) dizziness Medication List - Last Reconciled 11/21/24 by Edvin Shahid PA-C acetaminophen ER (Pain Relief (acetaminophen)) 650 mg PO Q12H 30 days cetirizine 10 mg PO DAILY 90 days diclofenac sodium 1% (Voltaren Arthritis Pain) 2 grams topical QID famotidine (Pepcid) 20 mg PO DAILY 30 days fluticasone propionate 50 mcg/actuation (Flonase Allergy Relief) 1 spray intranasal Q12H 30 days ibuprofen 800 mg PO Q8H 30 days olopatadine 0.2% (Pataday Once Daily Relief) 1 drp ophthalmic (eye) DAILY 30 days zolpidem (Ambien) 5 mg PO BEDTIME 30 days Tobacco use date assessed: 10/04/24 Dental Screening Dental Screen Date: 10/04/24 HPI PE HPI Details Patient is a 59-year-old female here today for an annual physical. Patient has a past medical history significant for hyperlipidemia, bilateral knee osteoarthritis, degenerative lumbar disc disease. Lumbar disc disease: Recently got lumbar spine MRI and awaiting radiology read out. She reports her lower lumbar spine pain has gotten a bit worse. Does report radicular symptoms with numbness and tingling in left foot. Has been using more Tylenol and ibuprofen. Unfortunately liver enzymes slightly elevated.. Of note MRI in 2021 does show moderate lumbar disc disease and disc herniation at L5-S1. She has done physical therapy for her chronic lumbar spine pain though has not been effective. She is now interested in seeing a set painter about pain reduction modality. .. Hyperlipidemia:? Most recent lipid panel showing improved total cholesterol though still an elevated LDL. She has been working on lifestyle and dietary modifications to reduce her cholesteroll.? Likely a familiar hyper cholesterolemia.? PLAN: Will start low-dose cholesterol medication and recheck cholesterol in 3 months. ?She has been working on being more physically active and reducing high cholesterol foods in her diet. .. Knee osteoarthritis: Patient continues to have bilateral knee pain in his interested in reestablishing care with orthopedic for evaluation. .. Insomnia: She does use Ambien 5 mg on an as needed basis. She continues to have trouble staying asleep. She has use [id number] melatonin with only minimal relief.. She is interested in trying magnesium to help sleep at Mammo: will call her SEISMIC INTERPRETER ( DR. Castaneda), .. Colon cancer screening: Cologuard done in 2020- repeat 3 years- willing to do another Cologuard .. VAccine: Declines Flu vaccine, up to date w/ Tdap.? PFSH Medical History Chronic pain syndrome Disc degeneration, lumbar Spondylosis of lumbar region without myelopathy or radiculopathy Low back pain Surgical History History of section History of wisdom tooth extraction History of cholecystectomy Family History Father Diabetes Mother No problems noted. 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 1. Little interest or pleasure in doing things: not at all 2. Feeling down, depressed, or hopeless: not at all 3. Trouble falling or staying asleep, or sleeping too much: not at all 4. Feeling tired or having little energy: not at all 5. Poor appetite or overeating: not at all 6. Feeling bad about yourself - or that you are a failure or have let yourself or your family down: not at all 7. Trouble concentrating on things, such as reading the newspaper or watching television: not at all 8. Moving or speaking so slowly that other people could have noticed. Or the opposite - being so fidgety or restless that you have been moving around a lot more than usual: not at all 9. Thoughts that you would be better off or of hurting yourself in some way: not at all Total score: 0 Depression Screening Interpretation: Negative Depression Screening Done: Yes 57722 - PHQ-9 Billing: Yes Source: Developed by Drs. Yaniv Pacheco, Stephanie Zabala, Dustin Combs and colleagues, with an educational austin from [employer]. Thrive Questionnaire Date Thrive assessed: 11/21/24 I am a: Patient What is your living situation today?: I have a steady place to live Within the past 12 months, did the food you bought not last and you didn't have the money to get more?: I choose not to answer this question Within the past 12 months, did you worry whether your food would run out before you got money to buy more?: I choose not to answer this question Do you have trouble paying for medicines?: I choose not to answer this question Do you have trouble getting transportation to medical appointments?: I choose not to answer this question Do you have trouble paying your heating and electricity bill?: I choose not to answer this question Do you have trouble taking care of your child, family member or friend?: I choose not to answer this question Do you have trouble with day-to-day activities such as bathing, preparing meals, shopping, managing finances, etc.?: I choose not to answer this question Are you currently unemployed and looking for a job?: No Are you interested in more education?: I choose not to answer this question Please select the resources that you would like help with: None Currently or been in a relationship where the following occur: No concerns reported THRIVE Score: 0 AUDIT C Alcohol Use Questionnaire (AUDIT-C) 1. How often do you have a drink containing alcohol?: Never Total Score: 0 NEGIN-7 AMB Questionnaire NEGIN-7 Date NEGIN - 7 assessed: 11/21/24 Feeling nervous, anxious, or on edge: 0 = Not at all Not being able to stop or control worryin = Not at all Worrying too much about different things: 0 = Not at all Trouble relaxin = Not at all Being so restless that it is hard to sit still: 0 = Not at all Becoming easily annoyed or irritable: 0 = Not at all Feeling afraid as if something awful might happen: 0 = Not at all Total NEGIN-7 score (0-4 normal; 5-9 mild; 10-14 moderate; 15-21 severe): 0 Source: Developed by Drs. Yaniv Pacheco, Stephanie Zabala, Dustin Combs and colleagues, with an educational austin from [employer]. NEGIN-7 Assessment Billing NEGIN-7 Assessment Tool: NEGIN-7 Assessment 09004 Review of Systems Const Denies body aches, Denies chills, Denies excessive sweating, Denies fatigue, Denies fever(s) and Denies headache(s) Eyes Denies blurry vision ENT Denies dysphagia, Denies vertigo, Denies dizziness, Denies headache(s), Denies hearing loss and Denies tinnitus Card Denies chest pain, Denies chest pain with activity, Denies syncope, Denies ir regular heart rhythm and Denies dyspnea Resp Denies chest congestion, Denies cough, Denies hemoptysis, Denies dyspnea and Denies wheezing GI Denies abdominal pain, Denies melena, Denies hematochezia, Denies coffee ground emesis, Denies dysphagia, Denies diarrhea, Denies nausea and Denies vomiting Denies urinary frequency, Denies dysuria, Denies urinary hesitancy and Denies urinary urgency Musc Denies arthralgias, Denies limited range of motion, Denies muscle cramps and Denies muscle weakness Skin/Breast Denies rash and Denies skin ulcer Neuro Denies Abnormal speech present, Denies confusion, Denies vertigo, Denies dizziness, Denies syncope, Denies headache(s), Denies memory loss and Denies seizure-like activity Psych Denies anxiety, Denies confusion, Denies depression, Denies memory loss, Denies panic attacks and Denies paranoia Endo Denies excessive sweating, Denies fatigue, Denies flushing, Denies polydipsia and Denies polyuria Aller/Immun Denies wheezing Physical exam (Primary Care) Vital Signs: Last Vital Signs Pulse 71 11/21/24 11:01 BP 116/64 11/21/24 11:01 Pulse Ox 98 11/21/24 11:01 BMI result Body Mass Index 26.6 Tobacco/Smoking Status: Tobacco use Status Tobacco use date assessed 10/04/24 11/21/24 10:54 Patient Tobacco Use Status Never used Tobacco 11/21/24 10:54 e-Cigarette/Vaping Use Never Used 11/21/24 10:54 PHQ-9: PHQ-9 Score PHQ-9: Total score 0 11/21/24 11:18 Depression Screening Interpretation: Negative Thrive Assessment: Date of Thrive Assessment Date Thrive assessed 11/21/24 11/21/24 10:54 Currently or been in a relationship where the following occur: No concerns reported Const General: cooperative, comfortable, no acute distress, alert and awake; No confusion Orientation/consciousness: oriented to person, oriented to place, patient oriented x3 and No confusion HENMT Head: Yes normocephalic Ears: external ears normal and TM's normal bilaterally Face and sinus: No sinus tenderness Mouth: Normal oral and palatal mucosa present and tongue normal Teeth and gingiva: dentition normal and gingiva normal Throat: Yes posterior oropharynx normal, Yes tonsils normal and Yes uvula midline Eyes Conjunctivae: conjunctivae normal Sclerae: sclerae normal Pupils: Equal, round and reactive pupils present EOM: EOMs intact bilaterally Direct Ophthalmoscopy: No no photophobia Neck Neck: Yes no lymphadenopathy, No tender and Yes no JVD Thyroid: Thyroid normal Carotids: no bruits Chest Chest palpation & inspection: no tenderness Resp Effort & Inspection: normal respiratory effort, no audible wheezes, not labored and no stridor Auscultation: no crackles, no rales, no rhonchi and no wheezes Cardio Jugular venous distension: no JVD Rate: regular rate, not bradycardic and not tachycardic Rhythm: regular rhythm Bruits: no carotid bruits Peripheral pulses: Peripheral pulses 2+ throughout GI Inspection: Yes normal to inspection, No abdominal wall ecchymosis and No visible herniation Palpation (GI): Soft to palpation, nontender, no guarding, not rigid and No hepatosplenomegaly present Auscultation: normoactive bowel sounds General: Yes no CVA tenderness Back/Spine/Pelvis Back: no CVA tenderness and No back tenderness Cervical Spine: cervical ROM normal Thoracic/Lumbar Spine: thoracic and lumbar spine normal to inspection, straight leg raise negative bilaterally, No thoraco-lumbar ROM limited and No lumbar spinal tenderness Skin Lesions: no lesions Rashes: no rashes Wounds: no wounds Neuro General: oriented to person, oriented to place, patient oriented x3, CN's II-XI intact bilaterally and No confusion Cranial nerves: Yes Equal, round and reactive pupils present and Yes Normal accommodation reflex present Cognition (Neuro): normal cognition Speech: No Abnormal speech present Gait exam (Neuro): Normal gait present Motor exam (neuro): 5/5 motor strength present throughout Extrem Right upper extremity: full ROM; no cyanosis Left upper extremity: full ROM; no cyanosis Right lower extremity: no edema Left lower extremity: no edema Psych Appearance: grossly normal Mental Status: mental status grossly normal Affect: normal affect Attitude: cooperative Thought process: Normal thought process present Coding Level of Care Code Est Pt Prev Care 40-64y(24763) Diagnoses Annual physical exam Z00.00 Chronic instability of right knee involving posterior horn of lateral meniscus M23.51 Mixed hyperlipidemia E78.2 Hyperlipidemia type: mixed hyperlipidemia Additional Codes NEGIN-7 Assessment Billing - NEGIN-7 Assessment Tool: NEGIN-7 Assessment 76160 ([id number]) PHQ-9 - 27249 - PHQ-9 Billing: Yes ([id number]) Assessment & Plan Assessment & Plan (1) Annual physical exam: Code(s): Z00.00 - Encounter for general adult medical examination without abnormal findings Category: Medical Plan: as per hpi (2) Chronic instability of right knee involving posterior horn of lateral meniscus: Code(s): M23.51 - Chronic instability of knee, right knee Category: Medical Plan: As per HPI patient has been complaining of right knee pain over the last several years, she reports buckling and instability of the right knee. She also reports having swelling intermittently chest medial to the knee joint. At we have tried MRI orders in the past though insurance have not approved. Will refer to orthopedics for evaluation. (3) HLD (hyperlipidemia): Code(s): E78.5 - Hyperlipidemia, unspecified Category: Medical Qualifiers: Hyperlipidemia type: mixed hyperlipidemia Qualified Code(s): E78.2 - Mixed hyperlipidemia Plan: Most recent lipid panel showing borderline high cholesterol, unfortunately her LDL still remains elevated at 172. She is willing to start low-dose cholesterol lowering medication thus will start atorvastatin 10 mg and recheck lipid panel in 3 months. Goal LDL is to be below 160 Orders: Referrals Orthopedics Referral M23.51 - Chronic instability of knee, right knee Medications: New magnesium 250 mg PO BEDTIME 90 tabs 3RF 90 days G47.00 - Insomnia, unspecified atorvastatin (Lipitor) 10 mg PO DAILY 90 tabs 1RF E78.2 - Mixed hyperlipidemia Refilled famotidine (Pepcid) 20 mg PO DAILY 30 tabs 3RF 30 days K21.9 - Gastro- esophageal reflux disease without esophagitis
[2024-11-21 11:01] VITALS: BP 116/64; PULSE 71; O2SAT 98; BMI 26.6
== END 2024-11-21 11:42 | disposition home or self-care (01) ==
LOC: HO.HMCH 10:44
PROVIDERS: PCP Physician Assistant; Visit Provider Physician Assistant
DX: Z00.00 Encounter for general adult medical examination without abnormal findings (principal); M23.51 Chronic instability of knee, right knee; E78.2 Mixed hyperlipidemia

== ENCOUNTER 2025-02-24 11:22 | Outpatient (REF) | payer OTHER, SELFPAY ==
[2025-02-24 11:43] LABS: Hematocrit 34.1 % (37.0-47.0); Hemoglobin 11.4 g/dl (12.0-16.0); Mean Corpuscular HGB Conc 33.4 g/dl (31.0-35.0); Mean Corpuscular Hemoglobin 29.2 pg (27.0-33.0); Mean Corpuscular Volume 87.4 fL (80.0-98.0); NRBC Abs Auto 0.000 X10*3/uL (0.0-0.012); NRBC Pct Auto 0.0 /100WBC (0.0-0.2); Platelet Count 314 X10*3/uL (160-400); Red Blood Count 3.90 X10*6/uL (4.20-5.50); White Blood Count 6.8 X10*3/uL (4.8-10.8)
[2025-02-24 12:30] LABS: Alanine Aminotransferase 21 U/L (0-31); Albumin Level 4.4 g/dL (3.5-5.0); Alkaline Phosphatase 104 U/L (39-117); Anion Gap 10 (12-20); Aspartate Amino Transferase 20 U/L (5-31); Blood Urea Nitrogen 11 mg/dL (9-16); Calcium 9.3 mg/dL (8.4-10.2); Carbon Dioxide 27 mmol/L (22-29); Chloride 108 mmol/L (96-108); Cholesterol 234 mg/dL (<200); Estimated Glomerular Filt Rate > 60; HDL Cholesterol 52 mg/dL (>40); Potassium 4.7 mmol/L (3.3-5.1); Sodium 140 mmol/L (135-145); Total Protein 7.6 g/dL (6.5-8.0); Triglycerides 97 mg/dL (<150)
--- OUTSIDE RECORDS SUMMARY | 2025-02-24 13:58 | XMS_ITS | Clinical Summary ---
Author Organization [facility] Address [address] [place] [id number] Phone Care Team Providers Care Director Fundraising Name Role Phone Unknown, Unknown Primary Care Provider Tony mascorro Allergies No known active allergies Social History Tobacco Use Types Packs/Day Years Used Date Smoking Tobacco: Never Assessed Education Answer Date Recorded Are you interested in more education? Not on rei e 09/17/2022 Are you concerned about learning? Not on file 09/17/2022 No 09/17/2022 No 09/17/2022 Digital Access Answer Date Recorded No 10/18/2022 No 10/18/2022 Reliable internet access at home? Not on file 10/18/2022 Device with a working camera? Not on file Comments Unknown Sex and Gender Information Value Date Recorded Sex Assigned at Not on file Legal Sex Female 8:49 PM EDT Gender Identity Not on file Sexual Orientation Not on file Last Filed Vital Signs Vital Sign Reading Time Taken Comments Blood Pressure 132/73 02/28/2022 9:03 PM EDT Pulse 78 02/28/2022 9:03 PM EDT Temperature 36.6 C (97.9 F) 02/28/2022 9:03 PM EDT Respiratory Rate 18 02/28/2022 9:03 PM EDT Oxygen Saturation 99% 02/28/2022 9:03 PM EDT Inhaled Oxygen Concentration - - Weight 68 kg (150 lb) 02/28/2022 9:03 PM EDT Height 165.1 cm (5' 5 ) 02/28/2022 9:03 PM EDT Body Mass Index 24.96 02/28/2022 9:03 PM EDT Plan of Treatment Not on file Medical Devices Not on file Insurance [employer] Care Teams Director Fundraising Relationship Specialty Start Date End Date Unknown, Unknown, PCP - General 02/28/22 Additional Source Comments The information contained in this document represents components of the legal health record. It is not the complete legal health record.[facility]
--- OUTSIDE RECORDS SUMMARY | 2025-02-24 13:58 | XMS_ITS | Encounter Summary ---
Author Organization [employer] Address [address] [place] [address] Care Team Providers Care Director Of Psychology Name Role Phone Unavailable Primary Care Provider Unavailabl e Encounter Details Date Type Department Care Team (Latest Contact Info) Description 02/22/2019 Abstract [facility] CONVERSIONS Dental, Provider, DDS Social History [...]
--- OUTSIDE RECORDS SUMMARY | 2025-02-24 13:58 | XMS_ITS | Clinical Summary ---
Author Organization [employer] Address [address] [place] [address] Care Team Providers Care Event Services Manager Name Role Phone Unavailable Primary Care Provider [...] 1967 FIT 1967 FOBT 1967 Sigmoidoscopy 1967 Disability Screening 1967 Alcohol/Substance Use Screening 1979 Tobacco Screening 1979 DTaP/Tdap/Td Vaccines (1 - Tdap) 1986 Hepatitis B Vaccines (1 of 3 - 19+ 3-dose series) 1986 Pap Smear 01/17/1988 Cervical Cancer Screening 1997 HPV/Cotest 1997 Mammogram 2007 Pneumococcal Vaccine: 50+ Ye ars (1 of 1 - PCV) 2017 Zoster Vaccines (1 of 2) 2017 COVID-19 Vaccine (1 - 2023-2 5 season) 2025 Influenza Vaccine (#1) 2025 RSV Patients and Pa tients Aged 60 [...]
--- OUTSIDE RECORDS SUMMARY | 2025-02-24 13:58 | XMS_ITS | Patient Health Record ---
Author Organization [facility] Address [address] [place] [address] Care Team Providers Care Measurer Machine Name Role Phone JACQUELINE BAH Primary Care Provider Marium Weems Unavailable [phone] Allergies Allergen (clinical drug ingredient) Drug/Non Drug [...] Status Risk Notes Problem Postmenopausal atrophic vaginitis (08869782) Postmenopausal atrophic vaginitis (N95.2) Active confirmed Problem Atrophy of vulva (628084707) Atrophy of vulva (N90.5) Active confirmed Problem Absence of menstruation (54365971) Absence of menstruation (626.0) Active confirmed Major Problem Postmenopausal atrophic vaginitis (40794749) Postmenopausal atrophic vaginitis (627.3) Active confirmed Diag Problem Gynecological examination normal ([id number]) Routine gynecological examination (V72.31) Active confirmed Plan Of Treatment Pending Test Test Name Order Date MAMMOGRAM, SCREENING 07/22/2014 THIN PREP,HPV,MIK IF HPV+ (>29YR)(SCRN) 09/13/2016 Next Appt Details Provider Name:Marium Ceballos [email or web address], 07/08/2025 09:20:00 AM, [address], [address], [place], [address], Insurance Providers Payer Name Payer Address Payer Phone Subscriber Number Group Number Insured Name Patient Relationship to Insured Coverage Start Date Coverage End Date [facility] [address] [address] [place] [id number] JULY ACOSTA Self - patient is the insured Medical (General) History Medical History History ICD Code Postmenopausal atrophic vaginitis N95.2 Amenorrhea, unspecified N91.2 Menopausal and female climacteric states N95.1 Surgical History Surgery Date(Month/Year) Left Breast Biopsy x 3 Cholecystectomy [place] Teeth Extraction Hospitalization History Reason Date(Month/Year) 3 C-Sections See Surgical Hx
== END 2025-02-24 11:23 | disposition home or self-care (01) ==
LOC: HO.LAB 11:22
PROVIDERS: PCP Physician Assistant; Visit Provider Physician Assistant
DX: K21.9 Gastro-esophageal reflux disease without esophagitis (principal); E78.2 Mixed hyperlipidemia
CPT/HCPCS: 36415; 80053; 80061; 85027

== ENCOUNTER 2025-02-27 09:31 | Outpatient (AMB) | payer OTHER, SELFPAY ==
--- NOTE | 2025-02-27 09:53 | A.OFFPC_ITS ---
Vital Signs 02/27/25 09:54 Height 5 ft 5 in Weight 159 lb 4 oz BMI 26.5 BP 130/62 Blood Pressure Location Lt brachial Position Sitting Pulse 78 Pulse Source Pulse Oximeter Temp 97.1 F Temp Source Temporal Artery Scan Pulse Oximetry (%) 97 Oxygen Delivery Method Room Air Intake Visit Reasons: 3mth f/u Intake Note: Patient is here to follow up on GERD, DDL, HLD. 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: Not Required per policy Accompanied by: Self / Same As Patient Allergies acetaminophen (Tylenol-Codeine) Adverse Reaction (Unknown, Verified 02/27/25 10:19) dizziness codeine (Tylenol-Codeine) Adverse Reaction (Unknown, Verified 02/27/25 10:19) dizziness Medication List - Last Reconciled 02/27/25 by Edvin Shahid PA-C acetaminophen ER (Pain Relief (acetaminophen)) 650 mg PO Q12H 30 days atorvastatin (Lipitor) 10 mg PO DAILY cetirizine 10 mg PO DAILY 90 days diclofenac sodium 1% (Voltaren Arthritis Pain) 2 grams topical QID famotidine (Pepcid) 20 mg PO DAILY 30 days fluticasone propionate 50 mcg/actuation (Flonase Allergy Relief) 1 spray intranasal Q12H 30 days ibuprofen 800 mg PO Q8H 30 days magnesium 250 mg PO BEDTIME 90 days olopatadine 0.2% (Pataday Once Daily Relief) 1 drp ophthalmic (eye) DAILY 30 days zolpidem (Ambien) 5 mg PO BEDTIME 30 days Tobacco use date assessed: 02/27/25 Dental Screening Dental Screen Date: 10/04/24 HPI 3mth f/u HPI Details Patient is a 60 year-old female here today for follow-up visit. Patient has a past medical history significant for hyperlipidemia, bilateral knee osteoarthritis, degenerative lumbar disc disease. Lumbar disc disease: She reports her lower lumbar spine pain has gotten a bit worse. Does report radicular symptoms with numbness and tingling in left foot. Has been using more Tylenol and ibuprofen. Unfortunately liver enzymes slightly elevated.. Of note MRI in 2023 does show moderate lumbar disc disease and disc herniation at L5-S1. She has done physical therapy for her chronic lumbar spine pain though has not been effective. She is now interested in seeing a film painter about pain reduction modality. .. Hyperlipidemia:? Most recent lipid panel showing improved total cholesterol though still an elevated LDL. She has been working on lifestyle and dietary modifications to reduce her cholesteroll.? Likely a familiar hyper cholesterolemia.? PLAN: Will start low-dose cholesterol medication Knee osteoarthritis: Patient continues to have bilateral knee pain in his interested in reestablishing care with orthopedic for evaluation. .. Insomnia: She does use Ambien 5 mg on an as needed basis. She continues to have trouble staying asleep. She has use [id number] melatonin with only minimal relief.. She is interested in trying magnesium to help sleep at [facility] Medical History Chronic pain syndrome Disc degeneration, lumbar Spondylosis of lumbar region without myelopathy or radiculopathy Low back pain Surgical History History of section History of wisdom tooth extraction History of cholecystectomy Family History Father Diabetes Mother No problems noted. 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 - [employer] Current occupational exposures/hazards: No Cognitive needs: No Hearing needs: No Vision needs: Yes (Glasses) Questionnaire Thrive Questionnaire Date Thrive assessed: 11/21/24 I am a: Patient What is your living situation today?: I have a steady place to live Within the past 12 months, did the food you bought not last and you didn't have the money to get more?: I choose not to answer this question Within the past 12 months, did you worry whether your food would run out before you got money to buy more?: I choose not to answer this question Do you have trouble paying for medicines?: I choose not to answer this question Do you have trouble getting transportation to medical appointments?: I choose not to answer this question Do you have trouble paying your heating and electricity bill?: I choose not to answer this question Do you have trouble taking care of your child, family member or friend?: I choose not to answer this question Do you have trouble with day-to-day activities such as bathing, preparing meals, shopping, managing finances, etc.?: I choose not to answer this question Are you currently unemployed and looking for a job?: No Are you interested in more education?: I choose not to answer this question Please select the resources that you would like help with: None Currently or been in a relationship where the following occur: No concerns reported THRIVE Score: 0 NEGIN-7 AMB Questionnaire NEGIN-7 Date NEGIN - 7 assessed: 11/21/24 Source: Developed by Drs. Yaniv Pacheco, Stephanie Zabala, Dustin Combs and colleagues, with an educational austin from [email or web address]. Review of Systems Const Denies headache(s) Eyes Denies loss of vision ENT Denies vertigo, Denies dizziness, Denies headache(s) and Denies sore throat Card Denies chest pain, Denies leg edema and Denies lightheadedness Resp Denies cough, Denies hemoptysis and Denies wheezing GI Denies abdominal pain, Denies melena, Denies constipation, Denies diarrhea and Denies vomiting Denies urinary frequency, Denies dysuria and Denies urinary urgency Musc Denies arthralgias, Denies joint swelling, Denies numbness and Denies tingling Neuro Denies Abnormal speech present, Denies behavioral changes, Denies vertigo, Denies dizziness, Denies headache(s), Denies loss of vision, Denies memory loss, Denies numbness and Denies tingling Psych Denies anxiety, Denies behavioral changes, Denies depression, Denies memory loss and Denies panic attacks Reginald/Lymph Denies easy bleeding and Denies easy bruising Aller/Immun Denies wheezing Physical exam (Primary Care) Vital Signs: Last Vital Signs Temp 97.1 F 02/27/25 09:54 Pulse 78 02/27/25 09:54 BP 130/62 02/27/25 09:54 Pulse Ox 97 02/27/25 09:54 Oxygen Delivery Method Room Air 02/27/25 09:54 BMI result Body Mass Index 26.5 Tobacco/Smoking Status: Tobacco use Status Tobacco use date assessed 02/27/25 02/27/25 09:58 Patient Tobacco Use Status Never used Tobacco 02/27/25 09:58 e-Cigarette/Vaping Use Never Used 02/27/25 09:58 Thrive Assessment: Date of Thrive Assessment Date Thrive assessed 11/21/24 02/27/25 09:58 Currently or been in a relationship where the following occur: No concerns reported Const General: healthy appearing, no acute distress, alert and awake Nutritional Appearance: well nourished Orientation/consciousness: oriented to person, oriented to place and oriented to time HENMT Ears: TM's normal bilaterally General nose exam: Normal nasal mucous membranes and turbinates present Eyes Conjunctivae: conjunctivae normal Sclerae: sclerae normal Pupils: Equal, round and reactive pupils present Neck Neck: Yes no lymphadenopathy and Yes no JVD Thyroid: Thyroid normal Carotids: no bruits Resp Effort & Inspection: normal respiratory effort and not tachypneic Auscultation: no crackles, no rales, no rhonchi and no wheezes Cardio Rate: regular rate Rhythm: regular rhythm Heart sounds: no murmurs and normal S1 and S2 GI Palpation (GI): Soft to palpation, nontender, no hepatomegaly and no splenomegaly Auscultation: normal bowel sounds Skin General skin exam: no rashes or lesions noted and dry skin Neuro General: oriented to person, oriented to place and oriented to time Cranial nerves: Yes Equal, round and reactive pupils present Speech: No Abnormal speech present Gait exam (Neuro): Normal gait present Motor exam (neuro): no tremor noted Extrem Right upper extremity: full ROM Left upper extremity: full ROM Right lower extremity: full ROM; no edema Left lower extremity: full ROM; no edema Psych Mental Status: mental status grossly normal Speech and movement: Normal speech and movement present Affect: normal affect Attitude: cooperative Thought process: Normal thought process present Coding Level of Care Code Est Pt Level 4 (63805) Diagnoses Spondylosis of lumbar region without myelopathy or radiculopathy M47.816 Slow transit constipation K59.01 Constipation type: slow transit constipation Degenerative disc disease at L5-S1 level M51.37 Vaginal vault prolapse N81.9 Mixed hyperlipidemia E78.2 Hyperlipidemia type: mixed hyperlipidemia Assessment & Plan Assessment & Plan (1) Spondylosis of lumbar region without myelopathy or radiculopathy: Code(s): M47.816 - Spondylosis without myelopathy or radiculopathy, lumbar region Category: Medical Plan: Additionally, I addressed her low back pain, considering non-invasive pain management strategies and potential referral to a telecommunications specialist. During this period, oral analgesics were recommended, ensuring the patient has no contraindications. Follow-up is planned to integrate new imaging findings with ongoing care. (2) Constipation: Code(s): K59.00 - Constipation, unspecified Category: Medical Qualifiers: Constipation type: slow transit constipation Qualified Code(s): K59.01 - Slow transit constipation Plan: For constipation, the patient is advised to try lactulose and continue increasing dietary fiber and hydration. If symptoms persist, further evaluation may be necessary. (3) Degenerative disc disease at L5-S1 level: Code(s): M51.37 - Other intervertebral disc degeneration, lumbosacral region Category: Medical Plan: See above (4) Vaginal vault prolapse: Code(s): N81.9 - Female genital prolapse, unspecified Category: Medical Plan: She has been told by her OBGYN clinically she has a vaginal prolapse.. Patient willing to try pelvic floor therapy (5) HLD (hyperlipidemia): Code(s): E78.5 - Hyperlipidemia, unspecified Category: Medical Qualifiers: Hyperlipidemia type: mixed hyperlipidemia Qualified Code(s): E78.2 - Mixed hyperlipidemia Plan: Most recent lipid panel showing borderline high cholesterol, unfortunately her LDL still remains elevated slightly elevated as well.. She is willing to restart low-dose cholesterol lowering medication . 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 Goal total cholesterol to remain below 230 and LDL to be below 160 Orders: Orders PT Evaluation and Treatment 02/27/25 N81.9 - Female genital prolapse, unspecified Referrals Pain Management Referral M51.37 - Other intervertebral disc degeneration, lumbosacral region Medications: New gabapentin 100 mg PO BID 60 caps 1RF 30 days M51.37 - Other intervertebral disc degeneration, lumbosacral region cyclobenzaprine 10 mg PO BID PRN 20 tabs 0RF muscle spasm 10 days M51.37 - Other intervertebral disc degeneration, lumbosacral region lactulose 30 mL PO DAILY PRN 946 mL 0RF constipation 4 weeks N81.9 - Female genital prolapse, unspecified Refilled ibuprofen 800 mg PO Q8H 90 tabs 1RF 30 days G95.9 - Disease of spinal cord, unspecified zolpidem (Ambien) 5 mg PO BEDTIME 30 tabs 3RF sleep 30 days G47.00 - Insomnia, unspecified
[2025-02-27 09:54] VITALS: BP 130/62; PULSE 78; TEMP 36.2; O2SAT 97; BMI 26.5
== END 2025-02-27 10:49 | disposition home or self-care (01) ==
LOC: HO.HMCH 09:32
PROVIDERS: PCP Physician Assistant; Visit Provider Physician Assistant
DX: M47.816 Spondylosis without myelopathy or radiculopathy, lumbar region (principal); K59.01 Slow transit constipation; M51.371 Other intervertebral disc degeneration, lumbosacral region with lower extremity pain only; N81.9 Female genital prolapse, unspecified; E78.2 Mixed hyperlipidemia

== ENCOUNTER → 2025-02-27 09:31 | Outpatient (BNVA) | payer OTHER, SELFPAY | PROVIDERS: PCP Physician Assistant; Visit Provider Physician Assistant | DX: M17.0 Bilateral primary osteoarthritis of knee (principal); E78.5 Hyperlipidemia, unspecified; G47.00 Insomnia, unspecified; Z79.899 Other long term (current) drug therapy; M47.816 Spondylosis without myelopathy or radiculopathy, lumbar region; K59.01 Slow transit constipation; M51.379 Other intervertebral disc degeneration, lumbosacral region without mention of lumbar back pain or lower extremity pain; N81.9 Female genital prolapse, unspecified; E78.2 Mixed hyperlipidemia | CPT/HCPCS: 99212 ==